=== PATIENT | female | born 1950 | race Caucasian/White ===

== ENCOUNTER 2016-12-19 14:25 | Emergency (ER) | payer MEDICARE, OTHER ==
[2016-12-19 15:00] VITALS: BP 161/95
--- NOTE | 2016-12-19 15:25 | EDM.PDOC ---
ED HPI GENERAL MEDICAL PROBLEM - General Chief Complaint: Genitourinary Problem Stated Complaint: UTI SYMPTOMS Time Seen by Provider: 12/19/16 15:18 Source of Information: Reports: Patient History Limitations: Reports: No Limitations - History of Present Illness INITIAL COMMENTS - FREE TEXT/NARRATIVE: Pt with urinary symptoms starting yesterday. Started Amoxicillin on 12/11 for sore throat. Hx of UTI many years ago. Had a cystoscopy about 10 years ago that helped resolve the issue. Denies fever. Reports increased frequency of urination. Onset: Sudden Onset Date: 12/18/16 Duration: Intermittent Quality: Reports: Burning, Pressure Severity: Mild Improves with: Reports: Other (OTC med Azo) Associated Symptoms: Reports: No Other Symptoms back Pain Score (Numeric/FACES): 5 - Related Data Allergies Allergy/AdvReac Type Severity Reaction Status Date / Time No Known Allergies Allergy Verified 12/19/16 14:47 Home Meds: Home Meds Amoxicillin 875 mg PO BID 12/19/16 [History] Calcium Carbonate/Vitamin D3 [Calcium 600 + Vit D 200] 1 tab PO BID 12/19/16 [ History] Hydrochlorothiazide 25 mg PO DAILY 12/19/16 [History] OLANZapine [Olanzapine] 5 mg PO DAILY 12/19/16 [History] Omeprazole 20 mg PO DAILY 12/19/16 [History] PARoxetine [Paxil] 20 mg PO BID 12/19/16 [History] Potassium Chloride [Klor-Con 10] 10 meq PO BID 12/19/16 [History] Raloxifene [Evista] 60 mg PO DAILY 12/19/16 [History] Simvastatin [Zocor] 40 mg PO BEDTIME 12/19/16 [History] amLODIPine/Benazepril [Lotrel 5-10 MG] 1 tab PO DAILY 12/19/16 [History] Past Medical History Cardiovascular History: Reports: High Cholesterol, Hypertension Gastrointestinal History: Reports: GERD Musculoskeletal History: Reports: Arthritis, Osteoporosis, Other (See Below) Other Musculoskeletal History: compression fractures to lower spine Psychiatric History: Reports: Anxiety, Bipolar, Depression Immunologic History: Reports: Other (See Below) Other Immunologic History: hepatitis C - Infectious Disease History Infectious Disease History: Reports: Hepatitis C, MRSA - Past Surgical History Cardiovascular Surgical History: Reports: None GI Surgical History: Reports: Cholecystectomy Female Surgical History: Reports: Cystoscopy, Tubal Ligation Musculoskeletal Surgical History: Reports: Knee Replacement Social & Family History - Tobacco Use Smoking Status *Q: Never Smoker Second Hand Smoke Exposure: No - Recreational Drug Use Recreational Drug Use: No ED ROS GENERAL - Review of Systems Review Of Systems: See Below Constitutional: Reports: No Symptoms : Reports: Dysuria, Frequency, Pain Musculoskeletal: Reports: Back Pain (chronic, pending surgery on Wednesday for compression FX) ED EXAM, RENAL/ - Physical Exam Exam: See Below Exam Limited By: No Limitations General Appearance: Alert, WD/WN, No Apparent Distress Respiratory/Chest: No Respiratory Distress, Lungs Clear, Normal Breath Sounds, No Accessory Muscle Use, Chest Non-Tender Cardiovascular: Normal Peripheral Pulses, Regular Rate, Rhythm, No Edema, No Gallop, No JVD, No Murmur, No Rub GI/Abdominal: Normal Bowel Sounds, Soft, Non-Tender, No Organomegaly, No Distention, No Abnormal Bruit, No Mass Course - Vital Signs Last Recorded V/S: Last Vital Signs Temp 98 F 12/19/16 14:59 Pulse 89 12/19/16 14:59 Resp 16 12/19/16 14:59 BP 161/95 H 12/19/16 14:59 Pulse Ox 96 12/19/16 14:59 - Orders/Labs/Meds Labs: Laboratory Tests 12/19/16 Range/Units 14:53 Urine Color [place] Urine Appearance Cloudy Urine pH 5.0 (4.5-8.0) Ur Specific [place] 1.015 (1.008-1.030) Urine Protein 100 H (NEGATIVE) mg/dL Urine Glucose (UA) Normal (NEGATIVE) mg/dL Urine Ketones Negative (NEGATIVE) mg/dL Urine Occult Blood Large (NEGATIVE) Urine Nitrite Positive H (NEGATIVE) Urine Bilirubin Moderate (NEGATIVE) Urine Urobilinogen 4 (NORMAL) mg/dL Ur Leukocyte Esterase Large (NEGATIVE) Urine RBC 10-20 H (0-5) Urine WBC Packed H (0-5) Ur Epithelial Cells Few Amorphous Sediment Few Urine Bacteria Moderate Urine Mucus Few Departure - Departure Time of Disposition: 15:22 Disposition: Home, Self-Care 01 Condition: good Clinical Impression: UTI, Urinary tract infectious disease - Discharge Information Instructions: Urinary Tract Infection, Adult, [id number] Forms: ED Department Discharge Additional Instructions: UA positive for UTI. Will treat with Bactrim DS 1 tab twice daily x 7 days. Will need to check UA in the am prior to surgery. Increase fluids, hydration. Followup if symptoms worsen. - Problem List & Annotations (1) UTI, Urinary tract infectious disease SNOMED Code(s): 00390622 Code(s): N39.0 - URINARY TRACT INFECTION, SITE NOT SPECIFIED Status: Acute Priority: Low Current Visit: Yes
== END 2016-12-19 15:40 | disposition home or self-care (01) ==
LOC: JP.ED 14:25
DX: N39.0 Urinary tract infection, site not specified (principal); I10 Essential (primary) hypertension; E78.00 Pure hypercholesterolemia, unspecified; K21.9 Gastro-esophageal reflux disease without esophagitis; M19.90 Unspecified osteoarthritis, unspecified site; F31.9 Bipolar disorder, unspecified; Z79.899 Other long term (current) drug therapy; Z90.49 Acquired absence of other specified parts of digestive tract; Z98.51 Tubal ligation status; Z96.659 Presence of unspecified artificial knee joint
CPT/HCPCS: 81001; 99283; 99284

== ENCOUNTER 2017-01-10 10:45 | Inpatient (IN) | payer MEDICARE, OTHER ==
--- NOTE | 2017-01-10 11:28 | EDM.PDOC ---
ED HPI GENERAL MEDICAL PROBLEM - General Chief Complaint: Fever Stated Complaint: FEVER/FEELS ILL Time Seen by Provider: 01/10/17 11:23 Source of Information: Reports: Patient, Family History Limitations: Reports: No Limitations - History of Present Illness INITIAL COMMENTS - FREE TEXT/NARRATIVE: Pt with back surgery on L3-4, L4-[address] Kelley [place]. Seen for URI and given Augmentin. Seen for UTI last week and given Cipro on 01/06. Still having urinary symptoms and high fevers. Back pain is doing well. Does note later that she was diagnosed with a new murmur last week and has a known history of low potassium. Onset: Gradual Duration: Intermittent Severity: Moderate Improves with: Reports: None Worsens with: Reports: None Associated Symptoms: Reports: Fever/Chills, Loss of Appetite, Nausea/Vomiting ( vomited x 1 this am) - Related Data Allergies Allergy/AdvReac Type Severity Reaction Status Date / Time No Known Allergies Allergy Verified 12/19/16 14:47 Home Meds: Home Meds Calcium Carbonate/Vitamin D3 [Calcium 600 + Vit D 200] 1 tab PO BID 12/19/16 [ History] Hydrochlorothiazide 25 mg PO DAILY 12/19/16 [History] OLANZapine [Olanzapine] 5 mg PO DAILY 12/19/16 [History] Omeprazole 20 mg PO DAILY 12/19/16 [History] PARoxetine [Paxil] 20 mg PO BID 12/19/16 [History] Potassium Chloride [Klor-Con 10] 10 meq PO BID 12/19/16 [History] Raloxifene [Evista] 60 mg PO DAILY 12/19/16 [History] Simvastatin [Zocor] 40 mg PO BEDTIME 12/19/16 [History] amLODIPine/Benazepril [Lotrel 5-10 MG] 1 tab PO DAILY 12/19/16 [History] Ciprofloxacin HCl [Cipro] 01/10/17 [History] Past Medical History Cardiovascular History: Reports: Heart Murmur, High Cholesterol, Hypertension Gastrointestinal History: Reports: GERD Musculoskeletal History: Reports: Arthritis, Osteoporosis, Other (See Below) Other Musculoskeletal History: compression fractures to lower spine Psychiatric History: Reports: Anxiety, Bipolar, Depression Immunologic History: Reports: Other (See Below) Other Immunologic History: hepatitis C - Infectious Disease History Infectious Disease History: Reports: Hepatitis C, MRSA - Past Surgical History Cardiovascular Surgical History: Reports: None GI Surgical History: Reports: Cholecystectomy Female Surgical History: Reports: Cystoscopy, Tubal Ligation Musculoskeletal Surgical History: Reports: Knee Replacement Social & Family History - Tobacco Use Smoking Status *Q: Never Smoker Second Hand Smoke Exposure: No - Recreational Drug Use Recreational Drug Use: No ED ROS GENERAL - Review of Systems Review Of Systems: See Below Constitutional: Reports: Fever, Chills, Fatigue, Decreased Appetite HEENT: Reports: No Symptoms Respiratory: Reports: No Symptoms Cardiovascular: Reports: No Symptoms : Reports: Dysuria, Frequency, Incontinence Musculoskeletal: Reports: No Symptoms Skin: Reports: No Symptoms ED EXAM, SEPSIS - Physical Exam Exam: See Below Exam Limited By: No Limitations General Appearance: Alert, WD/WN, No Apparent Distress Ears: Normal External Exam, Normal Canal, Hearing Grossly Normal, Normal TMs Nose: Normal Inspection, Normal Mucosa, No Blood Throat/Mouth: Normal Inspection, Normal Lips, Normal Teeth, Normal Gums, Normal Oropharynx, Normal Voice, No Airway Compromise Head: Atraumatic, Normocephalic Neck: Normal Inspection, Supple, Non-Tender, Full Range of Motion Respiratory/Chest: No Respiratory Distress, Lungs Clear, Normal Breath Sounds, No Accessory Muscle Use, Chest Non-Tender Cardiovascular: Systolic Murmur (Gr3) GI/Abdominal: Normal Bowel Sounds, Soft, Non-Tender, No Organomegaly Extremities: Normal Inspection, Normal Range of Motion, Non-Tender, No Pedal Edema, Normal Capillary Refill Neurological: Alert, Oriented, CN II-XII Intact, Normal Cognition, Normal Gait, Normal Reflexes, No Motor/Sensory Deficits Skin: Warm, Dry, Intact, Normal Color, No Rash, Other (incision intact with no redness or warmth) Course - Vital Signs Last Recorded V/S: Last Vital Signs Temp 98.8 F 01/10/17 14:26 Pulse 93 01/10/17 14:26 Resp 16 01/10/17 14:26 BP 110/69 01/10/17 14:26 Pulse Ox 93 L 01/10/17 14:26 - Orders/Labs/Meds Orders: Active Orders 24 hr Category Date Time Status Chest 2V [CR] Stat Exams 01/10/17 12:15 Taken Lumbar Spine w Cont [CT] Stat Exams 01/10/17 13:17 Taken CULTURE BLOOD [BC] Urgent Lab 01/10/17 12:20 Received CULTURE BLOOD [BC] Urgent Lab 01/10/17 12:25 Received CULTURE URINE [RM] Stat Lab 01/10/17 11:40 Received NS + KCl 20mEq/L [Normal Saline with 20 mEq KCl] 1,000 Med 01/10/17 14:30 Active ml IV ASDIRECTED Blood Culture x2 Reflex Set [OM.PC] Urgent Oth 01/10/17 12:15 Ordered Medication Orders Potassium Chloride/Sodium Chloride (Normal Saline With 20 Meq Kcl) 1,000 mls @ 100 mls/hr IV ASDIRECTED SOTERO Labs: Laboratory Tests 01/10/17 01/10/17 01/10/17 Range/Units 11:37 11:37 11:37 WBC 10.4 (4.5-11.0) K/uL RBC 3.70 (3.30-5.50) M/uL Hgb 10.8 L (12.0-15.0) g/dL Hct 33.1 L (36.0-48.0) % MCV 90 (80-98) fL MCH 29 (27-31) pg MCHC 33 (32-36) % Plt Count 170 (150-400) K/uL Add Manual Diff Yes Neutrophils % (Manual) 83 H (36-66) % Band Neutrophils % 10 (5-11) % Lymphocytes % (Manual) 5 L (24-44) % Monocytes % (Manual) 2 (2-6) % Sodium 136 L (140-148) mmol/L Potassium 2.4 L* (3.6-5.2) mmol/L Chloride 98 L (100-108) mmol/L Carbon Dioxide 25 (21-32) mmol/L Anion Gap 15.4 H (5.0-14.0) mmol/L BUN 15 (7-18) mg/dL Creatinine 1.3 H (0.6-1.0) mg/dL Est Cr Clr Drug Dosing 30.16 mL/min Estimated GFR (MDRD) 41 L (>60) Glucose 140 H (74-106) mg/dL Lactic Acid 3.3 H (0.4-2.0) mmol/L Calcium 8.9 (8.5-10.1) mg/dL Urine Color Urine Appearance Urine pH (4.5-8.0) Ur Specific [place] (1.008-1.030) Urine Protein (NEGATIVE) mg/dL Urine Glucose (UA) (NEGATIVE) mg/dL Urine Ketones (NEGATIVE) mg/dL Urine Occult Blood (NEGATIVE) Urine Nitrite (NEGATIVE) Urine Bilirubin (NEGATIVE) Urine Urobilinogen (NORMAL) mg/dL Ur Leukocyte Esterase (NEGATIVE) Urine RBC (0-5) Urine WBC (0-5) Ur Epithelial Cells Amorphous Sediment Urine Bacteria Urine Mucus 01/10/17 Range/Units 11:38 WBC (4.5-11.0) K/uL RBC (3.30-5.50) M/uL Hgb (12.0-15.0) g/dL Hct (36.0-48.0) % MCV (80-98) fL MCH (27-31) pg MCHC (32-36) % Plt Count (150-400) K/uL Add Manual Diff Neutrophils % (Manual) (36-66) % Band Neutrophils % (5-11) % Lymphocytes % (Manual) (24-44) % Monocytes % (Manual) (2-6) % Sodium (140-148) mmol/L Potassium (3.6-5.2) mmol/L Chloride (100-108) mmol/L Carbon Dioxide (21-32) mmol/L Anion Gap (5.0-14.0) mmol/L BUN (7-18) mg/dL Creatinine (0.6-1.0) mg/dL Est Cr Clr Drug Dosing mL/min Estimated GFR (MDRD) (>60) Glucose (74-106) mg/dL Lactic Acid (0.4-2.0) mmol/L Calcium (8.5-10.1) mg/dL Urine Color Yellow Urine Appearance Cloudy Urine pH 8.0 (4.5-8.0) Ur Specific [place] 1.015 (1.008-1.030) Urine Protein Negative (NEGATIVE) mg/dL Urine Glucose (UA) Normal (NEGATIVE) mg/dL Urine Ketones Negative (NEGATIVE) mg/dL Urine Occult Blood Negative (NEGATIVE) Urine Nitrite Negative (NEGATIVE) Urine Bilirubin Negative (NEGATIVE) Urine Urobilinogen Normal (NORMAL) mg/dL Ur Leukocyte Esterase Small (NEGATIVE) Urine RBC Not seen (0-5) Urine WBC 0-5 (0-5) Ur Epithelial Cells Few Amorphous Sediment Many Urine Bacteria Not seen Urine Mucus Not seen Meds: Medications Generic Name Dose Route Start Last Admin Trade Name Freq PRN Reason Stop Dose Admin Potassium Chloride/Sodium Chloride 1,000 mls @ 100 mls/hr 01/10/17 14:30 Normal Saline With 20 Meq Kcl IV ASDIRECTED SOTERO Discontinued Medications Generic Name Dose Route Start Last Admin Trade Name Freq PRN Reason Stop Dose Admin Sodium Chloride 70 mls @ 3 mls/sec 01/10/17 14:00 01/10/17 14:09 Normal Saline IV 01/10/17 15:00 3 mls/sec ASDIRECTED SOTERO Administration Iopamidol 90 ml 01/10/17 13:50 01/10/17 14:09 Isovue-300 (61%) IV 01/10/17 15:00 90 ml . DIRECTED PRN Administration RADIOLOGY EXAM Potassium Chloride 40 meq 01/10/17 12:53 01/10/17 13:02 Klor-Con M20 PO 01/10/17 12:54 40 meq ONETIME ONE Administration Sodium Chloride 10 ml 01/10/17 13:50 01/10/17 14:03 Saline Flush FLUSH 01/10/17 15:00 10 ml ONETIME PRN Administration per radiology protocol Departure - Departure Time of Disposition: 15:10 Disposition: Admitted As Inpatient 66 Condition: good Clinical Impression: Fever and neutropenia, Hypokalemia, Sepsis - Discharge Information Referrals: Yuni Mcnamara MD [Primary Care Provider] - Forms: ED Department Discharge Additional Instructions: CBC shows mild neutrophilia. Lactic acid elevated. Potassium low at 2.4. Blood culture pending. Chest xray completed and normal. CT of lumbar spine recommended to rule out abcess. Hospitalist consulted. Oral potassium 40 meq given. IV NS with 20 KCL initiated due to low potassium and GFR. Pt to be admitted to rule out causes of fever and treat hypokalemia. Dr. Loja admitting. See his notes for admit. - Problem List & Annotations (1) Fever and neutropenia SNOMED Code(s): 306558992 Code(s): D70.9 - NEUTROPENIA, UNSPECIFIED; R50.81 - FEVER PRESENTING WITH CONDITIONS CLASSIFIED ELSEWHERE Status: Acute Priority: High Current Visit : Yes (2) Hypokalemia SNOMED Code(s): 11656491 Code(s): E87.6 - HYPOKALEMIA Status: Acute Priority: High Current Visit : Yes - My Orders Last 24 Hours: My Active Orders 01/10/17 11:40 CULTURE URINE [RM] Stat 01/10/17 12:15 Chest 2V [CR] Stat Blood Culture x2 Reflex Set [OM.PC] Urgent 01/10/17 12:20 CULTURE BLOOD [BC] Urgent 01/10/17 12:25 CULTURE BLOOD [BC] Urgent 01/10/17 13:17 Lumbar Spine w Cont [CT] Stat 01/10/17 14:30 NS + KCl 20mEq/L [Normal Saline with 20 mEq KCl] 1,000 ml IV ASDIRECTED - Assessment/Plan Last 24 Hours: My Active Orders 01/10/17 11:40 CULTURE URINE [RM] Stat 01/10/17 12:15 Chest 2V [CR] Stat Blood Culture x2 Reflex Set [OM.PC] Urgent 01/10/17 12:20 CULTURE BLOOD [BC] Urgent 01/10/17 12:25 CULTURE BLOOD [BC] Urgent 01/10/17 13:17 Lumbar Spine w Cont [CT] Stat 01/10/17 14:30 NS + KCl 20mEq/L [Normal Saline with 20 mEq KCl] 1,000 ml IV ASDIRECTED
[2017-01-10] MEDS ORDERED: Potassium Chloride 20 MEQ Tab.ER PO ONE (12:53)
[2017-01-10] MEDS ORDERED: Iopamidol 612 MG/ML 100 ML Bottle IV PRN (13:50)
[2017-01-10] MEDS ORDERED: Sodium Chloride 0.9% 10 ML Syringe FLUSH PRN (13:50)
[2017-01-10] MEDS ORDERED: NS + KCl 20mEq/L 1,000 ML IV SCH (14:30)
--- NOTE | 2017-01-10 15:27 | PCM.HP ---
H&P History of Present Illness - General Date of Service: 01/10/17 Admit Problem/Dx: Admission Diagnosis/Problem Admission Diagnosis/Problem Fever Source of Information: Patient, Family, Provider History Limitations: Reports: No Limitations - History of Present Illness Initial Comments - Free Text/Narative: Cindy presented to the emergency room with fever, weakness, headache and myalgias. Symptoms started approximately 1 week ago and have progressed throughout the week. She has had multiple episodes of shaking chills. She has not measured any fevers at home. Her energy and her appetite has been very decreased from baseline. She reports that she's been in bed essentially all day everyday for the past week. She reports a mild generalized headache that comes and goes. No blurry vision or neck pain. No complaints of shortness of breath but she does feel fatigued. She hurts all over the place including mostly muscles but some joints. She hasn't noticed any joint swelling. No complaints of chest or abdominal pain. One episode of vomiting today but no diarrhea. She did have back surgery 2 weeks ago but has essentially no back pain at this time. She is not aware of any sick contacts. She is not aware of any tick bites. No recent difficulties with weight loss, fatigue or night sweats. Workup in the emergency room revealed a high fever, greater than 102. Laboratory studies reveal normal white count, elevated lactic acid, mild transaminitis and significant CRP elevation. - Related Data Allergies/Adverse Reactions: Allergies Allergy/AdvReac Type Severity Reaction Status Date / Time No Known Allergies Allergy Verified 12/19/16 14:47 Home Medications: Home Meds Calcium Carbonate/Vitamin D3 [Calcium 600 + Vit D 200] 1 tab PO BID 12/19/16 [ History] Hydrochlorothiazide 25 mg PO DAILY 12/19/16 [History] OLANZapine [Olanzapine] 5 mg PO DAILY 12/19/16 [History] Omeprazole 20 mg PO DAILY 12/19/16 [History] PARoxetine [Paxil] 20 mg PO BID 12/19/16 [History] Potassium Chloride [Klor-Con 10] 10 meq PO BID 12/19/16 [History] Raloxifene [Evista] 60 mg PO DAILY 12/19/16 [History] Simvastatin [Zocor] 40 mg PO BEDTIME 12/19/16 [History] amLODIPine/Benazepril [Lotrel 5-10 MG] 1 tab PO DAILY 12/19/16 [History] Ciprofloxacin HCl [Cipro] 500 mg PO BID 01/10/17 [History] Past Medical History Cardiovascular History: Reports: Heart Murmur, High Cholesterol, Hypertension Gastrointestinal History: Reports: GERD Musculoskeletal History: Reports: Arthritis, Osteoporosis, Other (See Below) Other Musculoskeletal History: compression fractures to lower spine Psychiatric History: Reports: Anxiety, Bipolar, Depression Immunologic History: Reports: Other (See Below) Other Immunologic History: hepatitis C - Infectious Disease History Infectious Disease History: Reports: Hepatitis C, MRSA - Past Surgical History Cardiovascular Surgical History: Reports: None GI Surgical History: Reports: Cholecystectomy Female Surgical History: Reports: Cystoscopy, Tubal Ligation Musculoskeletal Surgical History: Reports: Knee Replacement Social & Family History - Family History Cardiac: Denies: CAD - Tobacco Use Smoking Status *Q: Never Smoker Second Hand Smoke Exposure: No - Alcohol Use Alcohol Use History: No - Recreational Drug Use Recreational Drug Use: No H&P Review of Systems - Review of Systems: Review Of Systems: See Below Free Text/Narrative: A complete 12 point review of systems was obtained. Pertinent positives and negatives are noted in the history of present illness. All other systems were reviewed and were negative except as noted. Exam - Exam Exam: See Below - Vital Signs Vital Signs: Last Vital Signs Temp 37.1 C 01/10/17 14:26 Pulse 93 01/10/17 14:26 Resp 16 01/10/17 14:26 BP 110/69 01/10/17 14:26 Pulse Ox 93 L 01/10/17 14:26 Weight: 60.5 kg - Exam Quality Assessment: No: Supplemental Oxygen General: Alert, Oriented, Cooperative. No: Mild Distress HEENT: Conjunctiva Clear, Mucosa Moist & [place], Normal Nasal Septum. No: Scleral Icterus Neck: Supple, Trachea Midline. No: Lymphadenopathy, Thyromegaly Lungs: Clear to Auscultation, Normal Respiratory Effort Cardiovascular: Regular Rate, Regular Rhythm, Normal S1, Normal S2, Systolic Murmur (soft VALERIE LLSB). No: Rubs Abdomen: Normal Bowel Sounds, Soft. No: Distention, Tenderness Back Exam: Normal Inspection, Full Range of Motion Extremities: Normal Inspection, Normal Pulses, Other (No lymphadenopathy either axilla). No: Cyanosis Peripheral Pulses: 2+: Dorsalis Pedis (L), Dorsalis Pedis (R) Skin: Warm, Dry Neuro Extensive - Mental Status: Alert, Oriented x3, Nl Response to Commands Neuro Extensive - Motor, Sensory, Reflexes: CN II-XII Intact. No: Dysarthria, Abnormal Motor, Tremor Psychiatric: Alert, Normal Affect - Patient Data Lab Results last 24 hrs: Laboratory Results - last 24 hr 01/10/17 01/10/17 01/10/17 Range/Units 11:37 11:37 11:37 WBC 10.4 (4.5-11.0) K/uL RBC 3.70 (3.30-5.50) M/uL Hgb 10.8 L (12.0-15.0) g/dL Hct 33.1 L (36.0-48.0) % MCV 90 (80-98) fL MCH 29 (27-31) pg MCHC 33 (32-36) % Plt Count 170 (150-400) K/uL Add Manual Diff Yes Neutrophils % (Manual) 83 H (36-66) % Band Neutrophils % 10 (5-11) % Lymphocytes % (Manual) 5 L (24-44) % Monocytes % (Manual) 2 (2-6) % Sodium 136 L (140-148) mmol/L Potassium 2.4 L* (3.6-5.2) mmol/L Chloride 98 L (100-108) mmol/L Carbon Dioxide 25 (21-32) mmol/L Anion Gap 15.4 H (5.0-14.0) mmol/L BUN 15 (7-18) mg/dL Creatinine 1.3 H (0.6-1.0) mg/dL Est Cr Clr Drug Dosing 30.16 mL/min Estimated GFR (MDRD) 41 L (>60) Glucose 140 H (74-106) mg/dL Lactic Acid 3.3 H (0.4-2.0) mmol/L Calcium 8.9 (8.5-10.1) mg/dL Urine Color Urine Appearance Urine pH (4.5-8.0) Ur Specific [place] (1.008-1.030) Urine Protein (NEGATIVE) mg/dL Urine Glucose (UA) (NEGATIVE) mg/dL Urine Ketones (NEGATIVE) mg/dL Urine Occult Blood (NEGATIVE) Urine Nitrite (NEGATIVE) Urine Bilirubin (NEGATIVE) Urine Urobilinogen (NORMAL) mg/dL Ur Leukocyte Esterase (NEGATIVE) Urine RBC (0-5) Urine WBC (0-5) Ur Epithelial Cells Amorphous Sediment Urine Bacteria Urine Mucus 01/10/17 Range/Units 11:38 WBC (4.5-11.0) K/uL RBC (3.30-5.50) M/uL Hgb (12.0-15.0) g/dL Hct (36.0-48.0) % MCV (80-98) fL MCH (27-31) pg MCHC (32-36) % Plt Count (150-400) K/uL Add Manual Diff Neutrophils % (Manual) (36-66) % Band Neutrophils % (5-11) % Lymphocytes % (Manual) (24-44) % Monocytes % (Manual) (2-6) % Sodium (140-148) mmol/L Potassium (3.6-5.2) mmol/L Chloride (100-108) mmol/L Carbon Dioxide (21-32) mmol/L Anion Gap (5.0-14.0) mmol/L BUN (7-18) mg/dL Creatinine (0.6-1.0) mg/dL Est Cr Clr Drug Dosing mL/min Estimated GFR (MDRD) (>60) Glucose (74-106) mg/dL Lactic Acid (0.4-2.0) mmol/L Calcium (8.5-10.1) mg/dL Urine Color Yellow Urine Appearance Cloudy Urine pH 8.0 (4.5-8.0) Ur Specific [place] 1.015 (1.008-1.030) Urine Protein Negative (NEGATIVE) mg/dL Urine Glucose (UA) Normal (NEGATIVE) mg/dL Urine Ketones Negative (NEGATIVE) mg/dL Urine Occult Blood Negative (NEGATIVE) Urine Nitrite Negative (NEGATIVE) Urine Bilirubin Negative (NEGATIVE) Urine Urobilinogen Normal (NORMAL) mg/dL Ur Leukocyte Esterase Small (NEGATIVE) Urine RBC Not seen (0-5) Urine WBC 0-5 (0-5) Ur Epithelial Cells Few Amorphous Sediment Many Urine Bacteria Not seen Urine Mucus Not seen Result Diagrams: 01/10/17 11:37 01/10/17 11:37 Imaging Impressions last 24 hrs: CXR - images personally reviewed - clear, no infiltrate, mass, effusion or cardiomegally CT lumbar spine - images personally reviewed - no evidence for abscess. L1 compression fracture *Q Meaningful Use (ADM) - VTE *Q VTE Criteria *Q: - VTE Risk Assess *Q Each Risk Factor Represents 1 Point: None Total Score 1 Point Risk Factors: 0 Each Risk Factor Represents 2 Points: Age 60 - 74 Years, Surgery: Major, Arthroscopic and/or Laparoscopic, Greater than 60 Min Total Score 2 Point Risk Factors: 4 Each Risk Factor Represents 3 Points: None Total Score 3 Point Risk Factors: 0 Each Risk Factor Represents 5 Points: None Total Score 5 Point Risk Factors: 0 Venous Thromboembolism Risk Factor Score *Q: 4 - Stroke *Q Stroke Criteria *Q: - AMI *Q AMI Criteria *Q: - Problem List (1) Fever SNOMED Code(s): 296897772 ICD Code: R50.9 - FEVER, UNSPECIFIED Status: Acute Current Visit: Yes Qualifiers: Fever type: unspecified Qualified Code(s): R50.9 - Fever, unspecified (2) Sepsis SNOMED Code(s): 56095695 ICD Code: A41.9 - SEPSIS, UNSPECIFIED ORGANISM Status: Acute Current Visit: Yes Qualifiers: Sepsis type: sepsis due to unspecified organism Qualified Code(s): A41.9 - Sepsis, unspecified organism (3) Hypokalemia SNOMED Code(s): 52411760 ICD Code: E87.6 - HYPOKALEMIA Status: Acute Priority: High Current Visit: Yes Problem List Initiated/Reviewed/Updated: Yes Orders Last 24hrs: Active Orders 24 hr Category Date Time Status Patient Status Manage Transfer [TRANSFER] Routine ADT 01/10/17 15:12 Ordered Chest 2V [CR] Stat Exams 01/10/17 12:15 Taken Lumbar Spine w Cont [CT] Stat Exams 01/10/17 13:17 Taken CRP [C-REACTIVE PROTEIN] [CHEM] Urgent Lab 01/10/17 15:09 Ordered CULTURE BLOOD [BC] Urgent Lab 01/10/17 12:20 Received CULTURE BLOOD [BC] Urgent Lab 01/10/17 12:25 Received CULTURE URINE [RM] Stat Lab 01/10/17 11:40 Received ESR [SEDIMENTATION RATE MANUAL] [HEME] Urgent Lab 01/10/17 15:09 Ordered HEPATIC FUNCTION PANEL,HFP [CHEM] Urgent Lab 01/10/17 15:08 Ordered NS + KCl 20mEq/L [Normal Saline with 20 mEq KCl] 1,000 Med 01/10/17 14:30 Active ml IV ASDIRECTED cefTRIAXone [Rocephin] 1 gm Med 01/10/17 16:00 Active Sodium Chloride 0.9% [Normal Saline] 50 ml IV Q24H Blood Culture x2 Reflex Set [OM.PC] Urgent Oth 01/10/17 12:15 Ordered Resuscitation Status Routine Resus Stat 01/10/17 15:14 Ordered Medication Orders Potassium Chloride/Sodium Chloride (Normal Saline With 20 Meq Kcl) 1,000 mls @ 100 mls/hr IV ASDIRECTED SOTERO Ceftriaxone Sodium 1 gm/ (Sodium Chloride) 50 mls @ 100 mls/hr IV Q24H SOTERO Assessment/Plan Comment:: Assessment and plan - Fever with evidence for sepsis - Patient is tachycardic and has an elevated lactic acid level. Exact source for the fever is not entirely clear at this time. Chest x-ray looks good, urine is clear and there is no evidence for abscess or abnormality at lumbar surgical site. Examination is benign. She does have some risk factors for tickborne disease. Given the significant CRP and sedimentation rate elevation inflammatory or potentially an infectious diseases could be considered. Cultures have been obtained. She does have a heart murmur that was newly discovered though she does not have risk factors for endocarditis that I'm aware of. -Empiric ceftriaxone to cover tickborne illness -Since her allergies for tickborne illness -Peripheral smear and LDH to look for possible neoplastic disease such as leukemia/lymphoma -Anti-pyresis -Follow-up culture results -Echocardiogram in the morning to look for endocarditis -Peripheral smear Lower back pain status post recent laminectomy - CT did not show evidence for abscess but did show significant compression fracture at L1. Patient does not have any back pain at this time. I have a low suspicion for acute pathology in her lumbar spine. -Pain control if indicated Hyperkalemia - very low K+, probably 2/2 to diuretic use. She has received some in the emergency room. -IV fluids with potassium -Increase daily supplement to 20 mEq twice a day -Repeat labs in the morning Essential hypertension - blood pressure acceptable in the emergency room and usual medications will be continued. Maintenance issues - - DVT prophylaxis - mechanical - GI prophylaxis - PPI - Nutrition - regular diet - Negron catheter - not indicated CODE STATUS - full code Admission justification - This patient will be admitted for inpatient services and is medically appropriate meeting medical necessity for inpatient admission as outlined in my documentation. I reasonably expect the patient will require inpatient services that span a period time over 2 midnights. I reasonably expect this patient to be discharged or transferred within 96 hours after admission to the Critical [facility]. Disposition - anticipate discharge to home after the hospital stay Primary care physician - Dr Adners Loja M.D.
[2017-01-10] MEDS: cefTRIAXone 1 GM in Sodium Chloride 0.9% 50 ML IV SCH (15:32)
[2017-01-10] MEDS ORDERED: Polyethylene Glycol 3350 Powder 17 GM Packet PO PRN (17:10)
[2017-01-10] MEDS ORDERED: Ondansetron 4 MG Tab.DIS PO PRN (17:10)
[2017-01-10] MEDS ORDERED: Ibuprofen 400 MG Tab PO PRN (17:10)
[2017-01-10] MEDS ORDERED: Sodium Chloride 0.9% 1,000 ML IV SCH (17:10)
[2017-01-10] MEDS ORDERED: Sodium Chloride 0.9% 1,000 ML IV ONE ×2 (18:00)
[2017-01-10] MEDS: PARoxetine 20 MG Tab PO SCH (22:02)
[2017-01-10] MEDS: Simvastatin 20 MG Tab PO SCH (22:03)
[2017-01-10] MEDS: Potassium Chloride 20 MEQ Tab.ER PO SCH (22:03)
[2017-01-10] MEDS: Dextrose 5%-0.9% NaCl with KCl 1,000 ML IV SCH (23:32)
[2017-01-11] MEDS: Dextrose 5%-0.9% NaCl with KCl 1,000 ML IV SCH (07:52)
--- NOTE | 2017-01-11 09:26 | CR ---
Chest 2V INDICATION: fever, unknown origin FINDINGS: Thoracolumbar curve. Heart size within normal limits. Lungs are clear. Chest otherwise unr emarkable.
[2017-01-11] MEDS: Pantoprazole 40 MG Tab.CR PO SCH (09:41)
[2017-01-11] MEDS: Hydrochlorothiazide 25 MG Tab PO SCH (09:42)
[2017-01-11] MEDS: Raloxifene 60 MG Tab PO SCH (09:42)
[2017-01-11] MEDS: PARoxetine 20 MG Tab PO SCH ×2 (09:43→20:13)
[2017-01-11] MEDS: Potassium Chloride 20 MEQ Tab.ER PO SCH ×2 (09:44→20:13)
[2017-01-11] MEDS: OLANZapine 5 MG Tab PO SCH (09:44)
[2017-01-11] MEDS: amLODIPine 5 MG Tab PO SCH (09:44)
--- NOTE | 2017-01-11 12:18 | PCM.PN ---
- General Info Date of Service: 01/11/17 - Review of Systems General: Reports: Fever, Weakness. Denies: Chills Pulmonary: Reports: no symptoms Cardiovascular: Reports: No Symptoms Gastrointestinal: Reports: No symptoms Genitourinary: Reports: no symptoms Musculoskeletal: Denies: back pain, leg pain Neurological: Reports: No Symptoms Systems Review Comment:: Ms. Muñiz is a 66-year-old woman who was admitted through the emergency department with fever and weakness. Symptoms came on over the past few days, she has had a recent lumbar laminectomy done approximately 3 weeks ago, but denies sick again to increase in back pain. She's had no associated neurologic symptoms and no other specific source of infection has been identified on evaluation. CT scan was done of her lumbar spine and showed no evidence of underlying infection. Chest x-ray is clear and urinalysis shows no evidence of infection. She denies significant abdominal pain or skin lesions. White blood cell count is now elevated, it had been normal at the time of admission. She has been afebrile and hemodynamically stable since admission. - Patient Data Vitals - most recent: Last Vital Signs Temp 98.8 F 01/11/17 11:00 Pulse 84 01/11/17 11:00 Resp 18 01/11/17 11:00 BP 129/74 01/11/17 11:00 Pulse Ox 96 01/11/17 11:00 Weight - most recent: 127 lb 14.384 oz I&O - last 24 hours: Intake & Output 01/10/17 01/11/17 01/11/17 22:59 06:59 14:59 Intake Total 1320 2450 360 Output Total 5113 864 6298 Balance -380 1800 -940 Lab Results last 24 hrs: Laboratory Results - last 24 hr 01/10/17 01/11/17 01/11/17 Range/Units 17:10 05:50 05:50 WBC 14.3 H (4.5-11.0) K/uL RBC 3.38 (3.30-5.50) M/uL Hgb 10.0 L (12.0-15.0) g/dL Hct 30.7 L (36.0-48.0) % MCV 91 (80-98) fL MCH 30 (27-31) pg MCHC 33 (32-36) % Plt Count 178 (150-400) K/uL Sodium 146 (140-148) mmol/L Potassium 3.9 (3.6-5.2) mmol/L Chloride 112 H (100-108) mmol/L Carbon Dioxide 27 (21-32) mmol/L Anion Gap 10.9 (5.0-14.0) mmol/L BUN 10 (7-18) mg/dL Creatinine 0.9 (0.6-1.0) mg/dL Est Cr Clr Drug Dosing 43.57 mL/min Estimated GFR (MDRD) > 60 (>60) Glucose 126 H (74-106) mg/dL Lactic Acid 3.8 H (0.4-2.0) mmol/L Calcium 8.4 L (8.5-10.1) mg/dL Lactate Dehydrogenase 166 (82-234) U/L 01/11/17 Range/Units 05:50 WBC (4.5-11.0) K/uL RBC (3.30-5.50) M/uL Hgb (12.0-15.0) g/dL Hct (36.0-48.0) % MCV (80-98) fL MCH (27-31) pg MCHC (32-36) % Plt Count (150-400) K/uL Sodium (140-148) mmol/L Potassium (3.6-5.2) mmol/L Chloride (100-108) mmol/L Carbon Dioxide (21-32) mmol/L Anion Gap (5.0-14.0) mmol/L BUN (7-18) mg/dL Creatinine (0.6-1.0) mg/dL Est Cr Clr Drug Dosing mL/min Estimated GFR (MDRD) (>60) Glucose (74-106) mg/dL Lactic Acid 1.5 (0.4-2.0) mmol/L Calcium (8.5-10.1) mg/dL Lactate Dehydrogenase (82-234) U/L Med Orders - Current: Current Medications Acetaminophen (Tylenol) 650 mg PO Q4H PRN PRN Reason: Pain (Mild 1-3)/fever Amlodipine Besylate (Norvasc) 5 mg PO DAILY [facility] Last Admin: 01/11/17 09:44 Dose: 5 mg Benazepril HCl (Lotensin) 10 mg PO DAILY [facility] Last Admin: 01/11/17 09:42 Dose: 10 mg Hydrochlorothiazide (Hydrochlorothiazide) 25 mg PO DAILY [facility] Last Admin: 01/11/17 09:42 Dose: 25 mg Ceftriaxone Sodium 1 gm/ (Sodium Chloride) 50 mls @ 100 mls/hr IV Q24H [facility] Last Admin: 01/10/17 15:32 Dose: 100 mls/hr Ibuprofen (Motrin) 400 mg PO Q6H PRN PRN Reason: Pain (mild 1-3) Olanzapine (Zyprexa) 5 mg PO DAILY [facility] Last Admin: 01/11/17 09:44 Dose: 5 mg Ondansetron HCl (Zofran Odt) 4 mg PO Q6H PRN PRN Reason: Nausea able to take PO Pantoprazole Sodium (Protonix) 40 mg PO ACBREAKFAST [facility] Last Admin: 01/11/17 09:41 Dose: 40 mg Paroxetine HCl (Paxil) 20 mg PO BID [facility] Last Admin: 01/11/17 09:43 Dose: 20 mg Polyethylene Glycol (Miralax) 17 gm PO DAILY PRN PRN Reason: Constipation Potassium Chloride (Klor-Con M20) 20 meq PO BID [facility] Last Admin: 01/11/17 09:44 Dose: 20 meq Raloxifene HCl (Evista) 60 mg PO DAILY [facility] Last Admin: 01/11/17 09:42 Dose: 60 mg Simvastatin (Zocor) 40 mg PO BEDTIME [facility] Last Admin: 01/10/17 22:03 Dose: 40 mg Discontinued Medications Sodium Chloride (Normal Saline) 70 mls @ 3 mls/sec IV ASDIRECTED [facility] Stop: 01/10/17 15:00 Last Admin: 01/10/17 14:09 Dose: 3 mls/sec Potassium Chloride/Sodium Chloride (Normal Saline With 20 Meq Kcl) 1,000 mls @ 100 mls/hr IV ASDIRECTED [facility] Last Admin: 01/10/17 15:31 Dose: 100 mls/hr Potassium Chloride/Dextrose/Sod Cl (D5 Ns With 20 Meq Kcl) 1,000 mls @ 125 mls/ hr IV ASDIRECTED [facility] Last Admin: 01/11/17 07:52 Dose: 125 mls/hr Sodium Chloride (Normal Saline) 1,000 mls @ 999 mls/hr IV ASDIRECTED [facility] Sodium Chloride (Normal Saline) 1,000 mls @ 999 mls/hr IV ONETIME ONE Stop: 01/10/17 19:00 Last Admin: 01/10/17 18:11 Dose: 999 mls/hr Sodium Chloride (Normal Saline) 1,000 mls @ 999 mls/hr IV ONETIME ONE Stop: 01/10/17 19:00 Last Admin: 01/10/17 19:14 Dose: 999 mls/hr Iopamidol (Isovue-300 (61%)) 90 ml IV . DIRECTED PRN PRN Reason: RADIOLOGY EXAM Stop: 01/10/17 15:00 Last Admin: 01/10/17 14:09 Dose: 90 ml Potassium Chloride (Klor-Con M20) 40 meq PO ONETIME ONE Stop: 01/10/17 12:54 Last Admin: 01/10/17 13:02 Dose: 40 meq Sodium Chloride (Saline Flush) 10 ml FLUSH ONETIME PRN PRN Reason: per radiology protocol Stop: 01/10/17 15:00 Last Admin: 01/10/17 14:03 Dose: 10 ml - Exam Quality Assessment: DVT prophylaxis General: alert, oriented, cooperative, no acute distress Lungs: Clear to auscultation, Normal respiratory effort Cardiovascular: Regular Rate, Regular Rhythm Abdomen: bowel sounds present, soft, no tenderness, no distension Back Exam: Normal Inspection, Full Range of Motion Extremities: no edema Skin: warm, dry, intact - Problem List Review Problem List Initiated/Reviewed/Updated: Yes - My Orders Last 24 Hours: My Active Orders 01/11/17 11:11 Lumbar Spine Comp w wo Cont [MR] Stat 01/11/17 11:13 Convert IV to Saline Lock [OM.PC] Routine 01/12/17 05:00 BASIC METABOLIC PANEL,BMP [CHEM] Timed CBC WITH AUTO DIFF [HEME] Timed - Plan Plan:: Assessment and plan - Fever with evidence for sepsis - sepsis has resolved with no further temperature elevation since admission. Showed possible tickborne illness, white blood cell count was normal at the time of admission but is now elevated. -continue ceftriaxone -MRI of the lumbar spine to absolutely rule out underlying infection -Peripheral smear and LDH to look for possible neoplastic disease such as leukemia/lymphoma -Anti-pyresis -Follow-up culture results -Echocardiogram in the morning to look for endocarditis -Peripheral smear Lower back pain status post recent laminectomy - given recent surgery will proceed with MRI as above -Pain control if indicated Hyperkalemia -resolved with potassium replacement -saline lock IV -Increase daily supplement to 20 mEq twice a day -Repeat labs in the morning Essential hypertension - blood pressure acceptable in the emergency room and usual medications will be continued. Maintenance issues - - DVT prophylaxis - mechanical - GI prophylaxis - PPI - Nutrition - regular diet - Negron catheter - not indicated CODE STATUS - full code Admission justification - This patient will be admitted for inpatient services and is medically appropriate meeting medical necessity for inpatient admission as outlined in my documentation. I reasonably expect the patient will require inpatient services that span a period time over 2 midnights. I reasonably expect this patient to be discharged or transferred within 96 hours [facility] Disposition - anticipate discharge to home after the hospital stay Primary care physician - Dr Mcnamara
[2017-01-11] MEDS ORDERED: Gadoteridol 279.3 MG/ML 15 ML SDV IV SCH (13:00)
--- NOTE | 2017-01-11 13:23 | MR ---
Lumbar Spine Comp w wo Cont INDICATION: Fever, lumbar laminectomy 3 weeks ago COMPARISON: CT 01/10/2017. FINDINGS: 5 lumbar type vertebral bodies. Stable compression fracture of L1 with approximately 70-80 % loss of vertebral body height with buckling of the posterior cortex into the spinal canal which pr oduces moderate spinal canal narrowing, unchanged. Moderate/severe right neural foraminal narrowing at L2-3 and L3-4, and moderate right neural foraminal narrowing at L4-5. Moderate/severe left neural foraminal narrowing at L4-5, and severe left neural foraminal narrowing at L5-S1. Right hemilaminec jailyn changes at L3-4-L5-S1 with expected postoperative enhancement in the laminectomy defects and ri ght ventral epidural space. 0.9 cm AP x 6.3 cm superior to inferior fluid collection just deep to th e laminectomy incision demonstrates mild peripheral enhancement and could represent a small postoper ative seroma versus small abscess; clinically correlate. Left renal cyst. Exam otherwise unremarkabl e. IMPRESSION: 1. 0.9 cm AP x 6.3 cm superior to inferior fluid collection just deep to the laminectomy incision de monstrates mild peripheral enhancement and could represent a small postoperative seroma versus small abscess; clinically correlate. 2. Stable compression fracture of L1. 3. Multilevel stenoses.
[2017-01-11] MEDS ORDERED: Vancomycin 1 GM SDV IV SCH (16:00)
[2017-01-11] MEDS: cefTRIAXone 1 GM in Sodium Chloride 0.9% 50 ML IV SCH (16:22)
[2017-01-11] MEDS: Acetaminophen 325 MG Tab PO PRN (17:12)
[2017-01-11] MEDS: Simvastatin 20 MG Tab PO SCH (20:13)
[2017-01-12] MEDS: Pantoprazole 40 MG Tab.CR PO SCH (08:17)
[2017-01-12] MEDS: amLODIPine 5 MG Tab PO SCH (08:19)
[2017-01-12] MEDS: OLANZapine 5 MG Tab PO SCH (08:19)
[2017-01-12] MEDS: PARoxetine 20 MG Tab PO SCH ×2 (08:19→21:14)
[2017-01-12] MEDS: Raloxifene 60 MG Tab PO SCH (08:20)
[2017-01-12] MEDS: Potassium Chloride 20 MEQ Tab.ER PO SCH ×2 (08:20→21:14)
[2017-01-12] MEDS: Hydrochlorothiazide 25 MG Tab PO SCH (08:20)
[2017-01-12] MEDS ORDERED: Potassium Chloride 20 MEQ Tab.ER PO ONE (09:00)
[2017-01-12] MEDS: cefTRIAXone 1 GM in Sodium Chloride 0.9% 50 ML IV SCH (15:09)
[2017-01-12] MEDS: Acetaminophen 325 MG Tab PO PRN (15:18)
--- NOTE | 2017-01-12 15:54 | PCM.PN ---
- General Info Date of Service: 01/12/17 Functional Status: Reports: pain controlled, tolerating diet, ambulating, urinating - Review of Systems General: Denies: Fever, Chills Pulmonary: Reports: no symptoms Cardiovascular: Reports: No Symptoms Gastrointestinal: Reports: No symptoms Musculoskeletal: Reports: back pain Systems Review Comment:: Ms. Muñiz has been stable over the past 24 hours, vital signs have been good and she has remained afebrile. White blood cell count remains modestly elevated but has improved from admission. Is experiencing some mild back pain but not much different than what she is noted in the recent past. MRI of the lumbar spine did show a fluid collection possible seroma versus infection. I reviewed this with her spine surgeon, given that there is no erythema or significant tenderness over the wound as well as no significant increase in back pain he feels that it's unlikely that this is the source of her current fever. - Patient Data Vitals - most recent: Last Vital Signs Temp 100.4 F 01/12/17 14:58 Pulse 81 01/12/17 10:54 Resp 16 01/12/17 14:58 BP 123/74 01/12/17 14:58 Pulse Ox 97 01/12/17 14:58 Weight - most recent: 127 lb 14.384 oz I&O - last 24 hours: Intake & Output 01/12/17 01/12/17 01/12/17 06:59 14:59 22:59 Intake Total 250 360 Output Total 1100 1550 Balance -850 -1190 Lab Results last 24 hrs: Laboratory Results - last 24 hr 01/12/17 01/12/17 01/12/17 Range/Units 05:15 05:15 05:15 WBC 11.4 H (4.5-11.0) K/uL RBC 3.23 L (3.30-5.50) M/uL Hgb 9.5 L (12.0-15.0) g/dL Hct 29.0 L (36.0-48.0) % MCV 90 (80-98) fL MCH 29 (27-31) pg MCHC 33 (32-36) % Plt Count 198 (150-400) K/uL Add Manual Diff Yes Neutrophils % (Manual) 68 H (36-66) % Band Neutrophils % 4 L (5-11) % Lymphocytes % (Manual) 14 L (24-44) % Monocytes % (Manual) 12 H (2-6) % Eosinophils % (Manual) 2 (2-4) % ESR 116 H (0-25) mm/hr Sodium 140 (140-148) mmol/L Potassium 3.2 L (3.6-5.2) mmol/L Chloride 106 (100-108) mmol/L Carbon Dioxide 25 (21-32) mmol/L Anion Gap 12.2 (5.0-14.0) mmol/L BUN 8 (7-18) mg/dL Creatinine 0.8 (0.6-1.0) mg/dL Est Cr Clr Drug Dosing 49.01 mL/min Estimated GFR (MDRD) > 60 (>60) Glucose 105 (74-106) mg/dL Calcium 8.5 (8.5-10.1) mg/dL C-Reactive Protein (0.0-0.3) mg/dL 01/12/17 Range/Units 05:15 WBC (4.5-11.0) K/uL RBC (3.30-5.50) M/uL Hgb (12.0-15.0) g/dL Hct (36.0-48.0) % MCV (80-98) fL MCH (27-31) pg MCHC (32-36) % Plt Count (150-400) K/uL Add Manual Diff Neutrophils % (Manual) (36-66) % Band Neutrophils % (5-11) % Lymphocytes % (Manual) (24-44) % Monocytes % (Manual) (2-6) % Eosinophils % (Manual) (2-4) % ESR (0-25) mm/hr Sodium (140-148) mmol/L Potassium (3.6-5.2) mmol/L Chloride (100-108) mmol/L Carbon Dioxide (21-32) mmol/L Anion Gap (5.0-14.0) mmol/L BUN (7-18) mg/dL Creatinine (0.6-1.0) mg/dL Est Cr Clr Drug Dosing mL/min Estimated GFR (MDRD) (>60) Glucose (74-106) mg/dL Calcium (8.5-10.1) mg/dL C-Reactive Protein 6.54 H (0.0-0.3) mg/dL Med Orders - Current: Current Medications Acetaminophen (Tylenol) 650 mg PO Q4H PRN PRN Reason: Pain (Mild 1-3)/fever Last Admin: 01/12/17 15:18 Dose: 650 mg Amlodipine Besylate (Norvasc) 5 mg PO DAILY [facility] Last Admin: 01/12/17 08:19 Dose: 5 mg Benazepril HCl (Lotensin) 10 mg PO DAILY [facility] Last Admin: 01/12/17 08:19 Dose: 10 mg Hydrochlorothiazide (Hydrochlorothiazide) 25 mg PO DAILY [facility] Last Admin: 01/12/17 08:20 Dose: 25 mg Clindamycin Phosphate 600 mg/ (Sodium Chloride) 54 mls @ 100 mls/hr IV Q6H [facility] Ibuprofen (Motrin) 400 mg PO Q6H PRN PRN Reason: Pain (mild 1-3) Olanzapine (Zyprexa) 5 mg PO DAILY [facility] Last Admin: 01/12/17 08:19 Dose: 5 mg Ondansetron HCl (Zofran Odt) 4 mg PO Q6H PRN PRN Reason: Nausea able to take PO Pantoprazole Sodium (Protonix) 40 mg PO ACBREAKFAST [facility] Last Admin: 01/12/17 08:17 Dose: 40 mg Paroxetine HCl (Paxil) 20 mg PO BID [facility] Last Admin: 01/12/17 08:19 Dose: 20 mg Polyethylene Glycol (Miralax) 17 gm PO DAILY PRN PRN Reason: Constipation Potassium Chloride (Klor-Con M20) 20 meq PO BID [facility] Last Admin: 01/12/17 08:20 Dose: 20 meq Raloxifene HCl (Evista) 60 mg PO DAILY [facility] Last Admin: 01/12/17 08:20 Dose: 60 mg Simvastatin (Zocor) 40 mg PO BEDTIME [facility] Last Admin: 01/11/17 20:13 Dose: 40 mg Discontinued Medications Gadoteridol (Prohance) 15 ml IV .A DIRECTED [facility] Stop: 01/11/17 13:01 Last Admin: 01/11/17 12:49 Dose: 15 ml Sodium Chloride (Normal Saline) 70 mls @ 3 mls/sec IV ASDIRECTED [facility] Stop: 01/10/17 15:00 Last Admin: 01/10/17 14:09 Dose: 3 mls/sec Potassium Chloride/Sodium Chloride (Normal Saline With 20 Meq Kcl) 1,000 mls @ 100 mls/hr IV ASDIRECTED [facility] Last Admin: 01/10/17 15:31 Dose: 100 mls/hr Ceftriaxone Sodium 1 gm/ (Sodium Chloride) 50 mls @ 100 mls/hr IV Q24H [facility] Last Admin: 01/12/17 15:09 Dose: 100 mls/hr Potassium Chloride/Dextrose/Sod Cl (D5 Ns With 20 Meq Kcl) 1,000 mls @ 125 mls/ hr IV ASDIRECTED [facility] Last Admin: 01/11/17 07:52 Dose: 125 mls/hr Sodium Chloride (Normal Saline) 1,000 mls @ 999 mls/hr IV ASDIRECTED [facility] Sodium Chloride (Normal Saline) 1,000 mls @ 999 mls/hr IV ONETIME ONE Stop: 01/10/17 19:00 Last Admin: 01/10/17 18:11 Dose: 999 mls/hr Sodium Chloride (Normal Saline) 1,000 mls @ 999 mls/hr IV ONETIME ONE Stop: 01/10/17 19:00 Last Admin: 01/10/17 19:14 Dose: 999 mls/hr Vancomycin HCl 1 gm/ Sodium (Chloride) 250 mls @ 167 mls/hr IV Q12H [facility] Last Admin: 01/12/17 05:17 Dose: 167 mls/hr Iopamidol (Isovue-300 (61%)) 90 ml IV . DIRECTED PRN PRN Reason: RADIOLOGY EXAM Stop: 01/10/17 15:00 Last Admin: 01/10/17 14:09 Dose: 90 ml Potassium Chloride (Klor-Con M20) 40 meq PO ONETIME ONE Stop: 01/10/17 12:54 Last Admin: 01/10/17 13:02 Dose: 40 meq Potassium Chloride (Klor-Con M20) 40 meq PO ONETIME ONE Stop: 01/12/17 09:01 Last Admin: 01/12/17 09:42 Dose: 40 meq Sodium Chloride (Saline Flush) 10 ml FLUSH ONETIME PRN PRN Reason: per radiology protocol Stop: 01/10/17 15:00 Last Admin: 01/10/17 14:03 Dose: 10 ml Vancomycin HCl (Vancomycin) 1 gm IV .PHARMACY TO DOSE [facility] Stop: 01/11/17 17:00 - Exam General: alert, oriented, cooperative, no acute distress Lungs: Clear to auscultation, Normal respiratory effort Cardiovascular: Regular Rate, Regular Rhythm Abdomen: bowel sounds present, soft, no tenderness, no distension Extremities: no edema Wound/Incisions: other (Wound appears to be healing well with no associated erythema, drainage, or tenderness.) - Problem List Review Problem List Initiated/Reviewed/Updated: Yes - My Orders Last 24 Hours: My Active Orders 01/12/17 16:00 Clindamycin Phosphate [Cleocin] 600 mg Sodium Chloride 0.9% [Normal Saline] 50 ml IV Q6H 01/13/17 05:00 BASIC METABOLIC PANEL,BMP [CHEM] Timed CBC WITH AUTO DIFF [HEME] Timed - Plan Plan:: Assessment and plan - Fever with evidence for sepsis - CRP and sedimentation rate remained elevated from this morning, white blood cell count is improved and she has remained afebrile with stable vital signs. MRI showed fluid collection in the back, incision is healing well with no drainage, erythema, or tenderness. -Discontinue IV vancomycin and Rocephin -Clindamycin 600 mg IV every 6 hours, if tolerated and she remained stable plan for discharge to home on oral clindamycin -Anti-pyresis -Culture results negative thus far -Echocardiogram results pending Lower back pain status post recent laminectomy - given recent surgery will proceed with MRI as above -Pain control if indicated Hyperkalemia -resolved with potassium replacement -saline lock IV -Increase daily supplement to 20 mEq twice a day -Repeat labs in the morning Essential hypertension - blood pressure acceptable in the emergency room and usual medications will be continued. Maintenance issues - - DVT prophylaxis - mechanical - GI prophylaxis - PPI - Nutrition - regular diet - Negron catheter - not indicated CODE STATUS - full code Admission justification - This patient will be admitted for inpatient services and is medically appropriate meeting medical necessity for inpatient admission as outlined in my documentation. I reasonably expect the patient will require inpatient services that span a period time over 2 midnights. I reasonably expect this patient to be discharged or transferred within 96 hours [facility] Disposition - anticipate discharge to home after the hospital stay Primary care physician - Dr Mcnamara
[2017-01-12] MEDS: oxyCODONE 5 MG Tab PO PRN (16:42)
[2017-01-12] MEDS: Simvastatin 20 MG Tab PO SCH (21:15)
[2017-01-13] MEDS: Pantoprazole 40 MG Tab.CR PO SCH (07:49)
[2017-01-13] MEDS: Raloxifene 60 MG Tab PO SCH (09:10)
[2017-01-13] MEDS: Hydrochlorothiazide 25 MG Tab PO SCH (09:11)
[2017-01-13] MEDS: amLODIPine 5 MG Tab PO SCH (09:11)
[2017-01-13] MEDS: Potassium Chloride 20 MEQ Tab.ER PO SCH (09:11)
[2017-01-13] MEDS: PARoxetine 20 MG Tab PO SCH (09:12)
[2017-01-13] MEDS: OLANZapine 5 MG Tab PO SCH (09:12)
[2017-01-13 10:15] VITALS: BP 114/66
[2017-01-13] MEDS: oxyCODONE 5 MG Tab PO PRN (11:09)
[2017-01-13] MEDS: Acetaminophen 325 MG Tab PO PRN (11:09)
--- NOTE | 2017-01-13 12:52 | PCM.DCSUM1 ---
Discharge Summary - Hospital Course Brief History: This patient is a 66-year-old woman who was admitted through the emergency department with fever secondary to underlying infection and early sepsis. - Discharge Data Discharge Date: 01/13/17 Discharge Disposition: Home, Self-Care 01 Condition: Fair - Discharge Diagnosis/Problem(s) (1) Sepsis SNOMED Code(s): 19621503 ICD Code: A41.9 - SEPSIS, UNSPECIFIED ORGANISM Status: Acute Current Visit: Yes Qualifiers: Sepsis type: sepsis due to unspecified organism Qualified Code(s): A41.9 - Sepsis, unspecified organism (2) Fever SNOMED Code(s): 206601020 ICD Code: R50.9 - FEVER, UNSPECIFIED Status: Acute Current Visit: Yes Qualifiers: Fever type: unspecified Qualified Code(s): R50.9 - Fever, unspecified - Patient Summary/Data Hospital Course: Ms. Muñiz developed acute fever and weakness on the day of admission. Approximately 3 weeks prior to this admission she had undergone a lumbar laminectomy performed in [place]. A few days prior to this admission was found to have a urinary tract infection and was placed on oral antibiotic therapy. On the day of admission became extremely weak and had significant temperature elevation. On evaluation she was felt to have early sepsis and was admitted to the hospital on IV antibiotic therapy with ceftriaxone as well as vigorous IV fluid replacement for management of sepsis. Evaluation the emergency department did show elevation in white blood cell count but no obvious source of infection. Chest x-ray was clear with no obvious infiltrates and urine was clear with no evidence of underlying infection. CT scan of her lumbar spine was obtained in the emergency department and showed no evidence of infection. Blood cultures were obtained at the time of admission and remained negative throughout her hospital stay. Urine culture was also obtained and grew out only mixed yuan. Because of her recent spine surgery MRI of the spine was done on the day after admission this did show a fluid collection under the incision approximately 1 cm x 6 cm in size. It was indeterminant possibly representing a seroma versus infection. I did review these findings with her spine surgeon, he felt it was unlikely that this represented infection in that the patient had not had an increase in back pain and that the incision looked good with no surrounding erythema or tenderness to palpation. During the hospital stay she was switched from IV Rocephin to IV clindamycin and will be discharged home on oral clindamycin 300 mg 4 times daily for 2 weeks. Activity will be as tolerated and she will follow-up with her primary care provider within one week. Follow-up appointment has been already scheduled with her spine surgeon for January 22. She will be on probiotic therapy until she has completed her course of clindamycin. - Patient Instructions Diet: Usual Diet as Tolerated Activity: As Tolerated Other/Special Instructions: Patient already has follow-up appointment scheduled with her spine surgeon on 22 January. Please schedule follow-up appointment with her primary care provider Dr. Mcnamara within 1 week. - Discharge Plan Prescriptions/Med Rec: Clindamycin HCl [Cleocin] 300 mg PO Q6H #56 cap L.acidoph,Paracasei, B.lactis [Probiotic] 2 each PO BID #56 capsule oxyCODONE 5 mg PO Q4H PRN #20 tablet PRN Reason: Pain Home Medications: Home Meds Calcium Carbonate/Vitamin D3 [Calcium 600 + Vit D 200] 1 tab PO BID 12/19/16 [ History] Hydrochlorothiazide 25 mg PO DAILY 12/19/16 [History] OLANZapine [Olanzapine] 5 mg PO DAILY 12/19/16 [History] Omeprazole 20 mg PO DAILY 12/19/16 [History] PARoxetine [Paxil] 20 mg PO BID 12/19/16 [History] Potassium Chloride [Klor-Con 10] 10 meq PO BID 12/19/16 [History] Raloxifene [Evista] 60 mg PO DAILY 12/19/16 [History] Simvastatin [Zocor] 40 mg PO BEDTIME 12/19/16 [History] amLODIPine/Benazepril [Lotrel 5-10 MG] 1 tab PO DAILY 12/19/16 [History] Clindamycin HCl [Cleocin] 300 mg PO Q6H #56 cap 01/13/17 [Rx] L.acidoph,Paracasei, B.lactis [Probiotic] 2 each PO BID #56 capsule 01/13/17 [Rx ] oxyCODONE 5 mg PO Q4H PRN #20 tablet 01/13/17 [Rx] Forms: ED Department Discharge Referrals: Yuni Mcnamara MD [Primary Care Provider] - - Patient Data Vitals - Most Recent: Last Vital Signs Temp 99.4 F 01/13/17 10:13 Pulse 90 01/13/17 10:13 Resp 16 01/13/17 10:13 BP 114/66 01/13/17 10:13 Pulse Ox 97 01/13/17 10:13 Weight - Most Recent: 127 lb 14.384 oz I&O - Last 24 hours: Intake & Output 01/12/17 01/13/17 01/13/17 22:59 06:59 14:59 Intake Total 470 145 Output Total 675 778 950 Balance -205 -180 -950 Lab Results - Last 24 hrs: Laboratory Results - last 24 hr 01/11/17 01/11/17 01/13/17 Range/Units 05:50 05:50 05:34 WBC 11.0 (4.5-11.0) K/uL RBC 3.27 L (3.30-5.50) M/uL Hgb 9.5 L (12.0-15.0) g/dL Hct 29.6 L (36.0-48.0) % MCV 91 (80-98) fL MCH 29 (27-31) pg MCHC 32 (32-36) % Plt Count 248 (150-400) K/uL Add Manual Diff Yes Total Counted 100 Neutrophils % (Manual) 63 (36-66) % Band Neutrophils % 7 (5-11) % Lymphocytes % (Manual) 17 L (24-44) % Monocytes % (Manual) 10 H (2-6) % Eosinophils % (Manual) 3 (2-4) % Segmented Neutrophils 48 (38-70) % Band Neutrophils 14 H (0-8) % Lymphocytes 19 L (21-49) % Monocytes 14 H (3-11) % Eosinophils 3 (0-7) % Diff Path Review See below WBC Morphology Normal Variant Lymphocytes 2 (0-6) % Platelet Morphology Decreased RBC Morphology Normal Sodium (140-148) mmol/L Potassium (3.6-5.2) mmol/L Chloride (100-108) mmol/L Carbon Dioxide (21-32) mmol/L Anion Gap (5.0-14.0) mmol/L BUN (7-18) mg/dL Creatinine (0.6-1.0) mg/dL Est Cr Clr Drug Dosing mL/min Estimated GFR (MDRD) (>60) Glucose (74-106) mg/dL Calcium (8.5-10.1) mg/dL Lyme Disease Screen Negative (NEG) Ref Lab Pathologist See below 01/13/17 Range/Units 05:34 WBC (4.5-11.0) K/uL RBC (3.30-5.50) M/uL Hgb (12.0-15.0) g/dL Hct (36.0-48.0) % MCV (80-98) fL MCH (27-31) pg MCHC (32-36) % Plt Count (150-400) K/uL Add Manual Diff Total Counted Neutrophils % (Manual) (36-66) % Band Neutrophils % (5-11) % Lymphocytes % (Manual) (24-44) % Monocytes % (Manual) (2-6) % Eosinophils % (Manual) (2-4) % Segmented Neutrophils (38-70) % Band Neutrophils (0-8) % Lymphocytes (21-49) % Monocytes (3-11) % Eosinophils (0-7) % Diff Path Review WBC Morphology Variant Lymphocytes (0-6) % Platelet Morphology RBC Morphology Sodium 142 (140-148) mmol/L Potassium 4.8 (3.6-5.2) mmol/L Chloride 108 (100-108) mmol/L Carbon Dioxide 26 (21-32) mmol/L Anion Gap 7.8 (5.0-14.0) mmol/L BUN 11 (7-18) mg/dL Creatinine 0.9 (0.6-1.0) mg/dL Est Cr Clr Drug Dosing 43.57 mL/min Estimated GFR (MDRD) > 60 (>60) Glucose 97 (74-106) mg/dL Calcium 8.6 (8.5-10.1) mg/dL Lyme Disease Screen (NEG) Ref Lab Pathologist Med Orders - Current: Current Medications Acetaminophen (Tylenol) 650 mg PO Q4H PRN PRN Reason: Pain (Mild 1-3)/fever Last Admin: 01/13/17 11:09 Dose: 650 mg Amlodipine Besylate (Norvasc) 5 mg PO DAILY [facility] Last Admin: 01/13/17 09:11 Dose: 5 mg Benazepril HCl (Lotensin) 10 mg PO DAILY [facility] Last Admin: 01/13/17 09:11 Dose: 10 mg Hydrochlorothiazide (Hydrochlorothiazide) 25 mg PO DAILY [facility] Last Admin: 01/13/17 09:11 Dose: 25 mg Clindamycin Phosphate 600 mg/ (Sodium Chloride) 54 mls @ 100 mls/hr IV Q6H [facility] Last Admin: 01/13/17 10:31 Dose: 100 mls/hr Ibuprofen (Motrin) 400 mg PO Q6H PRN PRN Reason: Pain (mild 1-3) Olanzapine (Zyprexa) 5 mg PO DAILY [facility] Last Admin: 01/13/17 09:12 Dose: 5 mg Ondansetron HCl (Zofran Odt) 4 mg PO Q6H PRN PRN Reason: Nausea able to take PO Oxycodone HCl (Oxycodone) 5 - 10 mg PO Q4H PRN PRN Reason: Pain Last Admin: 01/13/17 11:09 Dose: 5 mg Pantoprazole Sodium (Protonix) 40 mg PO ACBREAKFAST [facility] Last Admin: 01/13/17 07:49 Dose: 40 mg Paroxetine HCl (Paxil) 20 mg PO BID [facility] Last Admin: 01/13/17 09:12 Dose: 20 mg Polyethylene Glycol (Miralax) 17 gm PO DAILY PRN PRN Reason: Constipation Potassium Chloride (Klor-Con M20) 20 meq PO BID [facility] Last Admin: 01/13/17 09:11 Dose: 20 meq Raloxifene HCl (Evista) 60 mg PO DAILY [facility] Last Admin: 01/13/17 09:10 Dose: 60 mg Simvastatin (Zocor) 40 mg PO BEDTIME [facility] Last Admin: 01/12/17 21:15 Dose: 40 mg Discontinued Medications Gadoteridol (Prohance) 15 ml IV .A DIRECTED [facility] Stop: 01/11/17 13:01 Last Admin: 01/11/17 12:49 Dose: 15 ml Sodium Chloride (Normal Saline) 70 mls @ 3 mls/sec IV ASDIRECTED [facility] Stop: 01/10/17 15:00 Last Admin: 01/10/17 14:09 Dose: 3 mls/sec Potassium Chloride/Sodium Chloride (Normal Saline With 20 Meq Kcl) 1,000 mls @ 100 mls/hr IV ASDIRECTED [facility] Last Admin: 01/10/17 15:31 Dose: 100 mls/hr Ceftriaxone Sodium 1 gm/ (Sodium Chloride) 50 mls @ 100 mls/hr IV Q24H [facility] Last Admin: 01/12/17 15:09 Dose: 100 mls/hr Potassium Chloride/Dextrose/Sod Cl (D5 Ns With 20 Meq Kcl) 1,000 mls @ 125 mls/ hr IV ASDIRECTED [facility] Last Admin: 01/11/17 07:52 Dose: 125 mls/hr Sodium Chloride (Normal Saline) 1,000 mls @ 999 mls/hr IV ASDIRECTED [facility] Sodium Chloride (Normal Saline) 1,000 mls @ 999 mls/hr IV ONETIME ONE Stop: 01/10/17 19:00 Last Admin: 01/10/17 18:11 Dose: 999 mls/hr Sodium Chloride (Normal Saline) 1,000 mls @ 999 mls/hr IV ONETIME ONE Stop: 01/10/17 19:00 Last Admin: 01/10/17 19:14 Dose: 999 mls/hr Vancomycin HCl 1 gm/ Sodium (Chloride) 250 mls @ 167 mls/hr IV Q12H [facility] Last Admin: 01/12/17 05:17 Dose: 167 mls/hr Iopamidol (Isovue-300 (61%)) 90 ml IV . DIRECTED PRN PRN Reason: RADIOLOGY EXAM Stop: 01/10/17 15:00 Last Admin: 01/10/17 14:09 Dose: 90 ml Potassium Chloride (Klor-Con M20) 40 meq PO ONETIME ONE Stop: 01/10/17 12:54 Last Admin: 01/10/17 13:02 Dose: 40 meq Potassium Chloride (Klor-Con M20) 40 meq PO ONETIME ONE Stop: 01/12/17 09:01 Last Admin: 01/12/17 09:42 Dose: 40 meq Sodium Chloride (Saline Flush) 10 ml FLUSH ONETIME PRN PRN Reason: per radiology protocol Stop: 01/10/17 15:00 Last Admin: 01/10/17 14:03 Dose: 10 ml Vancomycin HCl (Vancomycin) 1 gm IV .PHARMACY TO DOSE [facility] Stop: 01/11/17 17:00 *Q Meaningful Use (DIS) - VTE *Q VTE Criteria *Q: - Stroke *Q Stroke Criteria *Q: - AMI *Q AMI Criteria *Q:
== END 2017-01-13 13:49 | disposition home or self-care (01) | DRG 872 ==
LOC: JP.ED 10:45 → JP.MS 15:12
PROVIDERS: ADMIT Internal Medicine; ATTEND Hospitalist
DX: A41.9 Sepsis, unspecified organism (principal); M96.843 Postprocedural seroma of a musculoskeletal structure following other procedure; E87.6 Hypokalemia; I10 Essential (primary) hypertension; D70.9 Neutropenia, unspecified; R53.1 Weakness; R50.9 Fever, unspecified; M79.1 Myalgia; Z98.890 Other specified postprocedural states; E78.00 Pure hypercholesterolemia, unspecified; R01.1 Cardiac murmur, unspecified; K21.9 Gastro-esophageal reflux disease without esophagitis; M19.90 Unspecified osteoarthritis, unspecified site; M81.0 Age-related osteoporosis without current pathological fracture; F41.9 Anxiety disorder, unspecified; F31.9 Bipolar disorder, unspecified; Z86.14 Personal history of Methicillin resistant Staphylococcus aureus infection; Z86.19 Personal history of other infectious and parasitic diseases; Z96.659 Presence of unspecified artificial knee joint; Y83.9 Surgical procedure, unspecified as the cause of abnormal reaction of the patient, or of later complication, without mention of misadventure at the time of the procedure
CPT/HCPCS: 36415; 71020 ×2; 72132; 80048; 80076; 81001; 83605; 85025; 85651; 86140; 87040 ×2; 87086; 99285; A9270; J7030; J7050; Q9967; 72158; 72158-26; 83615; 85027; 85060; 86618; 86666; 86666-59; 86753; 87077; 87186; 96365; 99283; A9576; J0696; J3370; J3480; J7040; S0077

== ENCOUNTER 2019-05-06 00:58 | Emergency (ER) | payer MEDICARE ==
[2019-05-06 01:30] VITALS: BP 142/82; PULSE 88
--- NOTE | 2019-05-06 01:55 | EDM.PDOC ---
ED HPI GENERAL MEDICAL PROBLEM - General Chief Complaint: Genitourinary Problem Stated Complaint: UTI Time Seen by Provider: 05/06/19 01:50 Source of Information: Reports: Patient, Old Records, RN History Limitations: Reports: No Limitations - History of Present Illness INITIAL COMMENTS - FREE TEXT/NARRATIVE: 69 yo female here with dysuria. No fever or vomiting. No flank pain. Was recently tx'd with TMP/SMZ for a UTI through the clinic. Onset: Today Onset Date: 05/06/19 Duration: Hour(s):, Getting Worse Location: Reports: Pelvis (urethral ) Quality: Reports: Burning Severity: Moderate Improves with: Reports: Medication (Pyridium) Worsens with: Reports: Other (time) Context: Reports: Other (Sexually active, recent UTI) Associated Symptoms: Denies: Fever/Chills, Nausea/Vomiting Treatments TITLE CLOSER: Reports: Other (see below) (None) bilateral lower back Pain Score (Numeric/FACES): 8 - Related Data Allergies Allergy/AdvReac Type Severity Reaction Status Date / Time No Known Allergies Allergy Verified 05/06/19 01:16 Home Meds: Home Meds Calcium Carbonate/Vitamin D3 [Calcium 600 + Vit D 200] 1 tab PO BID 12/19/16 [ History] Hydrochlorothiazide 25 mg PO DAILY 12/19/16 [History] OLANZapine [Olanzapine] 5 mg PO DAILY 12/19/16 [History] Omeprazole 20 mg PO DAILY 12/19/16 [History] PARoxetine [Paxil] 20 mg PO DAILY 12/19/16 [History] Potassium Chloride [Klor-Con 10] 10 meq PO BID 12/19/16 [History] Raloxifene [Evista] 60 mg PO DAILY 12/19/16 [History] Simvastatin [Zocor] 40 mg PO BEDTIME 12/19/16 [History] amLODIPine/Benazepril [Lotrel 5-10 MG] 1 tab PO DAILY 12/19/16 [History] Ferrous Sulfate [Ferosul] 325 mg PO DAILY 05/06/19 [History] Ibuprofen 400 mg PO ASDIRECTED PRN 05/06/19 [History] Past Medical History HEENT History: Reports: Impaired Vision Cardiovascular History: Reports: Heart Murmur, High Cholesterol, Hypertension Gastrointestinal History: Reports: GERD Genitourinary History: Reports: UTI, Recurrent CHIEF PSYCHOLOGY History: Reports: Musculoskeletal History: Reports: Arthritis, Fracture, Osteoporosis, Other (See Below) Other Musculoskeletal History: compression fractures to lower spine Psychiatric History: Reports: Anxiety, Bipolar, Depression Hematologic History: Reports: Anemia, Iron Deficiency Immunologic History: Reports: Other (See Below) Other Immunologic History: hepatitis C - Infectious Disease History Infectious Disease History: Reports: Chicken Pox - Past Surgical History HEENT Surgical History: Reports: Tonsillectomy GI Surgical History: Reports: Cholecystectomy Female Surgical History: Reports: Cystoscopy, Tubal Ligation Neurological Surgical History: Reports: Laminectomy Musculoskeletal Surgical History: Reports: Knee Replacement Social & Family History - Tobacco Use Smoking Status *Q: Never Smoker - Caffeine Use Caffeine Use: Reports: None Other Caffeine Use: occassionally - Recreational Drug Use Recreational Drug Use: No ED ROS GENERAL - Review of Systems Review Of Systems: See Below Constitutional: Reports: No Symptoms GI/Abdominal: Reports: No Symptoms : Reports: Dysuria, Frequency, Urgency. Denies: Hematuria Skin: Reports: No Symptoms ED EXAM, RENAL/ - Physical Exam Exam: See Below Exam Limited By: No Limitations General Appearance: Alert, WD/WN, No Apparent Distress Eye Exam: Bilateral Eye: Normal Inspection Ears: Normal External Exam, Normal Canal, Hearing Grossly Normal Nose: Normal Inspection Throat/Mouth: No Airway Compromise Head: Atraumatic, Normocephalic Neck: Normal Inspection Respiratory/Chest: No Respiratory Distress, No Accessory Muscle Use Back Exam: No: CVA Tenderness (R), CVA Tenderness (L) Extremities: Normal Inspection Neurological: Alert, Oriented, CN II-XII Intact, Normal Cognition, No Motor/ Sensory Deficits Psychiatric: Normal Affect, Normal Mood Skin Exam: Warm, Dry, Intact, Normal Color, No Rash Course - Vital Signs Last Recorded V/S: Last Vital Signs Temp 36.4 C 05/06/19 01:30 Pulse 88 05/06/19 01:30 Resp 17 05/06/19 01:30 BP 142/82 H 05/06/19 01:30 Pulse Ox 99 05/06/19 01:30 - Orders/Labs/Meds Orders: Active Orders 24 hr Category Date Time Status CULTURE URINE [RM] Stat Lab 05/06/19 01:48 Ordered Labs: Laboratory Tests 05/06/19 Range/Units 01:31 Urine Color Yellow (YELLOW) Urine Appearance Cloudy A (CLEAR) Urine pH 5.5 (5.0-8.0) Ur Specific [place] >= 1.030 (1.008-1.030) Urine Protein Negative (NEGATIVE) mg/dL Urine Glucose (UA) Negative (NEGATIVE) mg/dL Urine Ketones Negative (NEGATIVE) mg/dL Urine Occult Blood Negative (NEGATIVE) Urine Nitrite Negative (NEGATIVE) Urine Bilirubin Negative (NEGATIVE) Urine Urobilinogen 0.2 (0.2-1.0) EU/dL Ur Leukocyte Esterase Small H (NEGATIVE) Urine RBC 0-5 (0-5) Urine WBC 75-100 H (0-5) Ur Epithelial Cells Many Amorphous Sediment Not seen Urine Bacteria Few Urine Mucus Moderate Departure - Departure Time of Disposition: 01:55 Disposition: Home, Self-Care 01 Condition: Good Clinical Impression: Cystitis - Discharge Information *PRESCRIPTION DRUG MONITORING PROGRAM REVIEWED*: No *COPY OF PRESCRIPTION DRUG MONITORING REPORT IN PATIENT CELINA: No Instructions: Urinary Tract Infection, Adult, [id number] Referrals: PCP,None [Primary Care Provider] - Additional Instructions: Use cephalexin every 8 hrs. Drink ample fluids. Use Pyridium or AZO as needed for discomfort. Recheck in the clinic if not improving or worse. - My Orders Last 24 Hours: My Active Orders 05/06/19 01:48 CULTURE URINE [RM] Stat - Assessment/Plan Last 24 Hours: My Active Orders 05/06/19 01:48 CULTURE URINE [RM] Stat
== END 2019-05-06 02:01 | disposition home or self-care (01) ==
LOC: JP.ED 00:58
DX: N30.90 Cystitis, unspecified without hematuria (principal); I10 Essential (primary) hypertension; K21.9 Gastro-esophageal reflux disease without esophagitis; E78.5 Hyperlipidemia, unspecified; M81.0 Age-related osteoporosis without current pathological fracture; F32.9 Major depressive disorder, single episode, unspecified; Z79.899 Other long term (current) drug therapy
CPT/HCPCS: 81001; 87086; 87088; 87186; 99283

== ENCOUNTER 2019-07-15 15:13 | Emergency (ER) | payer MEDICARE ==
[2019-07-15 15:28] VITALS: BP 141/91; PULSE 87
--- NOTE | 2019-07-15 16:03 | EDM.PDOC ---
ED HPI GENERAL MEDICAL PROBLEM - General Chief Complaint: Genitourinary Problem Stated Complaint: UTI Time Seen by Provider: 07/15/19 15:45 Source of Information: Reports: Patient History Limitations: Reports: No Limitations - History of Present Illness INITIAL COMMENTS - FREE TEXT/NARRATIVE: 69-year-old female with a developed dysuria and increased urinary frequency today after having intercourse last night. She developed a urinary tract infection 2 months ago after intercourse as well. No fevers or chills, no back pain. Onset: Gradual Duration: Hour(s): (Symptoms developed over the last 12 hours) Associated Symptoms: Reports: No Other Symptoms - Related Data Allergies Allergy/AdvReac Type Severity Reaction Status Date / Time No Known Allergies Allergy Verified 05/06/19 01:16 Home Meds: Home Meds Calcium Carbonate/Vitamin D3 [Calcium 600 + Vit D 200] 1 tab PO BID 12/19/16 [ History] Hydrochlorothiazide 25 mg PO DAILY 12/19/16 [History] OLANZapine [Olanzapine] 5 mg PO DAILY 12/19/16 [History] Omeprazole 20 mg PO DAILY 12/19/16 [History] PARoxetine [Paxil] 20 mg PO DAILY 12/19/16 [History] Potassium Chloride [Klor-Con 10] 10 meq PO BID 12/19/16 [History] Raloxifene [Evista] 60 mg PO DAILY 12/19/16 [History] Simvastatin [Zocor] 40 mg PO BEDTIME 12/19/16 [History] amLODIPine/Benazepril [Lotrel 5-10 MG] 1 tab PO DAILY 12/19/16 [History] Ferrous Sulfate [Ferosul] 325 mg PO DAILY 05/06/19 [History] Ibuprofen 400 mg PO ASDIRECTED PRN 05/06/19 [History] Past Medical History HEENT History: Reports: Impaired Vision Cardiovascular History: Reports: Heart Murmur, High Cholesterol, Hypertension Gastrointestinal History: Reports: GERD Genitourinary History: Reports: UTI, Recurrent [employer] History: Reports: Musculoskeletal History: Reports: Arthritis, Fracture, Osteoporosis, Other (See Below) Other Musculoskeletal History: compression fractures to lower spine Psychiatric History: Reports: Anxiety, Bipolar, Depression Hematologic History: Reports: Anemia, Iron Deficiency Immunologic History: Reports: Other (See Below) Other Immunologic History: hepatitis C - Infectious Disease History Infectious Disease History: Reports: Chicken Pox - Past Surgical History HEENT Surgical History: Reports: Tonsillectomy GI Surgical History: Reports: Cholecystectomy Female Surgical History: Reports: Cystoscopy, Tubal Ligation Neurological Surgical History: Reports: Laminectomy Musculoskeletal Surgical History: Reports: Knee Replacement Social & Family History - Tobacco Use Smoking Status *Q: Never Smoker - Caffeine Use Caffeine Use: Reports: None Other Caffeine Use: occassionally ED ROS GENERAL - Review of Systems Review Of Systems: See Below Constitutional: Denies: Fever, Chills HEENT: Reports: No Symptoms Respiratory: Denies: Shortness of Breath Cardiovascular: Denies: Chest Pain GI/Abdominal: Denies: Abdominal Pain : Reports: Dysuria, Frequency, Urgency ED EXAM, RENAL/ - Physical Exam Exam: See Below Exam Limited By: No Limitations General Appearance: Alert, No Apparent Distress Respiratory/Chest: No Respiratory Distress, Lungs Clear Cardiovascular: Regular Rate, Rhythm GI/Abdominal: Non-Tender Back Exam: No: CVA Tenderness (R), CVA Tenderness (L) Course - Vital Signs Last Recorded V/S: Last Vital Signs Temp 96.1 F 07/15/19 15:28 Pulse 87 07/15/19 15:28 Resp 16 07/15/19 15:28 BP 141/91 H 07/15/19 15:28 Pulse Ox 98 07/15/19 15:28 - Orders/Labs/Meds Orders: Active Orders 24 hr Category Date Time Status CULTURE URINE [RM] Stat Lab 07/15/19 16:10 Received Labs: Laboratory Tests 07/15/19 Range/Units 15:28 Urine Color [place] A (YELLOW) Urine Appearance Clear (CLEAR) Urine pH 6.0 (5.0-8.0) Ur Specific [place] 1.010 (1.008-1.030) Urine Protein Negative (NEGATIVE) mg/dL Urine Glucose (UA) 100 H (NEGATIVE) mg/dL Urine Ketones Negative (NEGATIVE) mg/dL Urine Occult Blood Negative (NEGATIVE) Urine Nitrite Positive H (NEGATIVE) Urine Bilirubin Negative (NEGATIVE) Urine Urobilinogen 1.0 (0.2-1.0) EU/dL Ur Leukocyte Esterase Trace H (NEGATIVE) Urine RBC 0-5 (0-5) Urine WBC 5-10 H (0-5) Ur Epithelial Cells Few Amorphous Sediment Few Urine Bacteria Few Urine Mucus Not seen - Re-Assessments/Exams Free Text/Narrative Re-Assessment/Exam: 07/15/19 16:01 UA was nitrite positive with some WBCs and a few bacteria. A culture was initiated she will be placed on ciprofloxacin 500 mg twice daily for 3 days. Some extra doses were provided to take 1 dose after intercourse to prevent further cystitis. We will be in touch with her with culture results if she needs a change in her antibiotic. Departure - Departure Time of Disposition: 16:14 Disposition: Home, Self-Care 01 Clinical Impression: Cystitis - Discharge Information Instructions: Urinary Tract Infection, Adult Referrals: PCP,None [Primary Care Provider] - Forms: ED Department Discharge Care Plan Goals: Take antibiotic twice daily for 3 days. Take 1 dose of antibiotic after intercourse to prevent further infections. Recheck in 2 to 3 days if not improving satisfactorily, or return sooner if worsening such as fever, increased pain, or vomiting the medication. Sepsis Event Note - Evaluation Sepsis Screening Result: No Definite Risk - Focused Exam Vital Signs: Vital Signs Temp Pulse Resp BP Pulse Ox 07/15/19 15:28 96.1 F 87 16 141/91 H 98 07/15/19 15:26 96.1 F 87 16 141/91 H 98 Date Exam was Performed: 07/15/19 Time Exam was Performed: 16:50 - My Orders Last 24 Hours: My Active Orders 07/15/19 16:10 CULTURE URINE [RM] Stat - Assessment/Plan Last 24 Hours: My Active Orders 07/15/19 16:10 CULTURE URINE [RM] Stat
== END 2019-07-15 16:14 | disposition home or self-care (01) ==
LOC: JP.ED 15:13
DX: N30.90 Cystitis, unspecified without hematuria (principal); E78.00 Pure hypercholesterolemia, unspecified; I10 Essential (primary) hypertension; K21.9 Gastro-esophageal reflux disease without esophagitis; F41.9 Anxiety disorder, unspecified; F32.9 Major depressive disorder, single episode, unspecified; Z79.899 Other long term (current) drug therapy
CPT/HCPCS: 81001; 87086; 99283

== ENCOUNTER 2023-05-14 10:25 | Inpatient (IN) | payer MEDICARE ==
[2023-05-14] MEDS ORDERED: Ondansetron 4 MG/2 ML SDV IV PRN (10:55)
[2023-05-14] MEDS ORDERED: Sodium Chloride 0.9% 10 ML Syringe FLUSH PRN (10:55)
[2023-05-14] MEDS ORDERED: Polyethylene Glycol 3350 Powder 17 GM Packet PO PRN (10:55)
[2023-05-14] MEDS: Sodium Chloride 0.9% 1,000 ML IV SCH ×2 (11:37→17:08)
[2023-05-14] MEDS ORDERED: cefTRIAXone 2 GM in Sodium Chloride 0.9% 50 ML IV ONE (12:00)
[2023-05-14] MEDS ORDERED: Glucose Gel 15 GM in 37.5 GM Tube PO PRN (13:41)
[2023-05-14] MEDS ORDERED: 50% Dextrose in Water 50 ML Syringe IV PRN (13:41)
[2023-05-14] MEDS: Enoxaparin 40 MG/0.4 ML Syringe SUBCUT SCH (15:31)
[2023-05-14] MEDS: Acetaminophen 325 MG Tab PO PRN ×2 (15:39→20:29)
[2023-05-14] MEDS: Insulin Lispro 100 Unit/ML 3 ML KwikPen SUBCUT SCH ×2 (17:02→21:46)
[2023-05-14] MEDS ORDERED: Albuterol 6.7 GM Inhaler INH PRN (17:04)
[2023-05-14] MEDS: Lisinopril 10 MG Tab PO SCH (20:28)
[2023-05-14] MEDS: Potassium Chloride 10 MEQ Cap.ER PO SCH (20:29)
[2023-05-15 05:08] LABS: BASOPHILS PERCENT AUTO 0.1 % (0.1-1.3); HEMATOCRIT 31.9 % (34.3-46.0); HEMOGLOBIN 10.8 g/dL (11.2-15.5); IMMATURE GRAN ABSOLUTE AUTO 0.16 K/uL (0.00-0.23); IMMATURE GRAN PERCENT AUTO 0.9 % (0.0-0.7); LYMPHOCYTES ABSOLUTE AUTO 0.95 K/uL (0.8-3.3); LYMPHOCYTES PERCENT AUTO 5.2 % (11.4-47.7); MEAN CORPUSCULAR HEMOGLOBIN 30.1 pg (31.6-35.5); MEAN CORPUSCULAR HGB CONC 33.9 g/dL (31.6-35.5); MEAN CORPUSCULAR VOLUME 88.9 fL (81.4-99.0); MONOCYTES ABSOLUTE AUTO 2.89 K/uL (0.20-0.90); MONOCYTES PERCENT AUTO 15.7 % (3.3-12.6); NEUTROPHILS ABSOLUTE AUTO 14.41 K/uL (1.0-7.6); NEUTROPHILS PERCENT AUTO 78.1 % (40.0-78.1); PLATELET COUNT,PLT 164 K/uL (130-375); RED BLOOD CELL COUNT 3.59 M/uL (3.77-5.24); WHITE BLOOD CELL COUNT,WBC 18.4 K/uL (3.2-11.0)
[2023-05-15 05:14] LABS: BASOPHILS ABSOLUTE AUTO 0.02 K/uL (0.00-0.10)
[2023-05-15 05:32] LABS: CALCIUM 8.1 mg/dL (8.5-10.1); CREATININE 0.9 mg/dL (0.6-1.0); EST CRCL DRUG DOSING (CG) 39.39 mL/min
[2023-05-15 06:08] LABS: ANION GAP 10.8 mmol/L (5.0-14.0); POTASSIUM,K 2.8 mmol/L (3.6-5.2)
[2023-05-15] MEDS ORDERED: Potassium Chloride 20 MEQ Tab.ER PO ONE ×2 (06:11→12:00)
[2023-05-15] MEDS: Potassium Chloride 10 MEQ in Premix Bag 1 BAG IV SCH ×4 (06:28→12:58)
[2023-05-15] MEDS: Insulin Lispro 100 Unit/ML 3 ML KwikPen SUBCUT SCH ×4 (08:23→21:15)
[2023-05-15] MEDS: Pantoprazole 40 MG Tab.CR PO SCH (08:30)
[2023-05-15] MEDS: Rosuvastatin 5 MG Tab PO SCH (09:12)
[2023-05-15] MEDS: Aspirin 81 MG Tab.Chew PO SCH (09:12)
[2023-05-15] MEDS: Furosemide 20 MG Tab PO SCH (09:13)
[2023-05-15] MEDS: PARoxetine 20 MG Tab PO SCH (09:16)
[2023-05-15] MEDS: Potassium Chloride 10 MEQ Cap.ER PO SCH ×2 (09:17→20:19)
[2023-05-15] MEDS: OLANZapine 5 MG Tab PO SCH ×2 (09:18→18:38)
[2023-05-15] MEDS: Raloxifene 60 MG Tab PO SCH (09:19)
[2023-05-15] MEDS: amLODIPine 5 MG Tab PO SCH (09:25)
[2023-05-15] MEDS: Lisinopril 10 MG Tab PO SCH ×2 (09:26→20:19)
[2023-05-15] MEDS: Enoxaparin 40 MG/0.4 ML Syringe SUBCUT SCH (12:13)
[2023-05-15] MEDS: Polyethylene Glycol 3350 Powder 17 GM Packet PO SCH ×2 (13:08→20:19)
[2023-05-15] MEDS: cefTRIAXone 1 GM in Sodium Chloride 0.9% 50 ML IV SCH (14:53)
[2023-05-15] MEDS: Acetaminophen 325 MG Tab PO PRN ×2 (15:36→23:34)
[2023-05-16 05:17] LABS: HEMATOCRIT 32.6 % (34.3-46.0); HEMOGLOBIN 10.7 g/dL (11.2-15.5); MEAN CORPUSCULAR HEMOGLOBIN 29.5 pg (31.6-35.5); MEAN CORPUSCULAR HGB CONC 32.8 g/dL (31.6-35.5); MEAN CORPUSCULAR VOLUME 89.8 fL (81.4-99.0); RED BLOOD CELL COUNT 3.63 M/uL (3.77-5.24); WHITE BLOOD CELL COUNT,WBC 13.6 K/uL (3.2-11.0)
[2023-05-16 05:29] LABS: ANION GAP 12.1 mmol/L (5.0-14.0); CALCIUM 8.3 mg/dL (8.5-10.1); CREATININE 0.8 mg/dL (0.6-1.0); EST CRCL DRUG DOSING (CG) 44.31 mL/min; POTASSIUM,K 4.1 mmol/L (3.6-5.2)
[2023-05-16] MEDS: Pantoprazole 40 MG Tab.CR PO SCH (07:47)
[2023-05-16] MEDS: Insulin Lispro 100 Unit/ML 3 ML KwikPen SUBCUT SCH ×4 (07:53→21:34)
[2023-05-16] MEDS: Polyethylene Glycol 3350 Powder 17 GM Packet PO SCH (08:39)
[2023-05-16] MEDS: Rosuvastatin 5 MG Tab PO SCH (08:41)
[2023-05-16] MEDS: Aspirin 81 MG Tab.Chew PO SCH (08:41)
[2023-05-16] MEDS: Furosemide 20 MG Tab PO SCH (08:44)
[2023-05-16] MEDS: amLODIPine 5 MG Tab PO SCH (08:45)
[2023-05-16] MEDS: Raloxifene 60 MG Tab PO SCH (08:46)
[2023-05-16] MEDS: PARoxetine 20 MG Tab PO SCH (08:46)
[2023-05-16] MEDS: Potassium Chloride 10 MEQ Cap.ER PO SCH ×2 (08:47→21:35)
[2023-05-16] MEDS: Lisinopril 10 MG Tab PO SCH ×2 (08:48→21:35)
[2023-05-16] MEDS: OLANZapine 5 MG Tab PO SCH ×2 (08:48→16:10)
[2023-05-16] MEDS: Enoxaparin 40 MG/0.4 ML Syringe SUBCUT SCH (11:11)
[2023-05-16] MEDS: cefTRIAXone 1 GM in Sodium Chloride 0.9% 50 ML IV SCH (11:21)
[2023-05-16] MEDS: Acetaminophen 325 MG Tab PO PRN (15:10)
[2023-05-17] MEDS: Pantoprazole 40 MG Tab.CR PO SCH (07:22)
[2023-05-17] MEDS: Acetaminophen 325 MG Tab PO PRN (07:22)
[2023-05-17] MEDS: Insulin Lispro 100 Unit/ML 3 ML KwikPen SUBCUT SCH ×2 (07:38→11:49)
[2023-05-17] MEDS: Raloxifene 60 MG Tab PO SCH (09:11)
[2023-05-17] MEDS: amLODIPine 5 MG Tab PO SCH (09:11)
[2023-05-17] MEDS: Potassium Chloride 10 MEQ Cap.ER PO SCH (09:11)
[2023-05-17] MEDS: Rosuvastatin 5 MG Tab PO SCH (09:11)
[2023-05-17] MEDS: Furosemide 20 MG Tab PO SCH (09:11)
[2023-05-17] MEDS: Aspirin 81 MG Tab.Chew PO SCH (09:11)
[2023-05-17] MEDS: OLANZapine 5 MG Tab PO SCH (09:12)
[2023-05-17] MEDS: PARoxetine 20 MG Tab PO SCH (09:12)
[2023-05-17] MEDS: Lisinopril 10 MG Tab PO SCH (09:12)
[2023-05-17] MEDS ORDERED: Cephalexin 250 MG Cap PO SCH ×2 (10:00→21:00)
[2023-05-17] MEDS ORDERED: Cephalexin 250 MG Cap PO ONE (12:00)
[2023-05-17] MEDS: Enoxaparin 40 MG/0.4 ML Syringe SUBCUT SCH (12:23)
[2023-05-17 15:08] VITALS: BP 128/79; PULSE 88
== END 2023-05-17 15:32 | disposition home or self-care (01) | DRG 872 ==
LOC: JP.MS 10:25
PROVIDERS: ADMIT Hospitalist; ATTEND Internal Medicine
DX: A41.4 Sepsis due to anaerobes (principal); N30.00 Acute cystitis without hematuria; N17.9 Acute kidney failure, unspecified; F31.9 Bipolar disorder, unspecified; R63.0 Anorexia; E78.00 Pure hypercholesterolemia, unspecified; E11.9 Type 2 diabetes mellitus without complications; I10 Essential (primary) hypertension; K21.9 Gastro-esophageal reflux disease without esophagitis; M81.0 Age-related osteoporosis without current pathological fracture; M19.90 Unspecified osteoarthritis, unspecified site; Z96.659 Presence of unspecified artificial knee joint; F41.9 Anxiety disorder, unspecified; D50.9 Iron deficiency anemia, unspecified; Z86.19 Personal history of other infectious and parasitic diseases; Z90.89 Acquired absence of other organs; Z90.49 Acquired absence of other specified parts of digestive tract; Z98.51 Tubal ligation status; Z68.30 Body mass index [BMI] 30.0-30.9, adult; Z79.899 Other long term (current) drug therapy; Z79.01 Long term (current) use of anticoagulants; Z98.890 Other specified postprocedural states
CPT/HCPCS: 36415; 80048; 82947; 83605; 84132; 85025; 85027; 87040; 87077; 87086; 87186; 97110-GP; 97161-GP; 99222; 99232; 99238; A9270-GY; J0696; J1650; J1815; J3480; J3490; J7030

== ENCOUNTER 2023-06-22 14:05 | Emergency (ER) | payer MEDICARE ==
[2023-06-22 14:31] LABS: BASOPHILS PERCENT AUTO 0.2 % (0.1-1.3); EOSINOPHILS ABSOLUTE AUTO 0.06 K/uL (0.00-0.40); EOSINOPHILS PERCENT AUTO 0.5 % (0.0-5.4); HEMATOCRIT 38.3 % (34.3-46.0); HEMOGLOBIN 12.4 g/dL (11.2-15.5); IMMATURE GRAN ABSOLUTE AUTO 0.05 K/uL (0.00-0.23); IMMATURE GRAN PERCENT AUTO 0.4 % (0.0-0.7); LYMPHOCYTES ABSOLUTE AUTO 0.53 K/uL (0.8-3.3); LYMPHOCYTES PERCENT AUTO 4.4 % (11.4-47.7); MEAN CORPUSCULAR HEMOGLOBIN 29.2 pg (31.6-35.5); MEAN CORPUSCULAR HGB CONC 32.4 g/dL (31.6-35.5); MEAN CORPUSCULAR VOLUME 90.3 fL (81.4-99.0); MONOCYTES ABSOLUTE AUTO 1.86 K/uL (0.20-0.90); MONOCYTES PERCENT AUTO 15.5 % (3.3-12.6); NEUTROPHILS ABSOLUTE AUTO 9.45 K/uL (1.0-7.6); PLATELET COUNT,PLT 144 K/uL (130-375); RED BLOOD CELL COUNT 4.24 M/uL (3.77-5.24)
[2023-06-22 14:45] LABS: A/G RATIO 0.7 (1.2-2.2); ALANINE AMINOTRANSFERASE,ALT 41 U/L (12-78); ALKALINE PHOSPHATASE 165 U/L (46-116); ASPARTATE AMNIOTRANSFERASE,AST 53 U/L (15-37); BILIRUBIN TOTAL 2.2 mg/dL (0.2-1.0); BLOOD UREA NITROGEN,BUN 38 mg/dL (7-18); CALCIUM 10.3 mg/dL (8.5-10.1); CARBON DIOXIDE,CO2 21 mmol/L (21-32); CHLORIDE,CL 101 mmol/L (100-108); CREATININE 2.6 mg/dL (0.6-1.0); EST CRCL DRUG DOSING (CG) 13.63 mL/min; ESTIMATED GFR 19 mL/min (>60); GLUCOSE RANDOM 117 mg/dL (74-106); POTASSIUM,K 4.5 mmol/L (3.6-5.2); PROTEIN TOTAL,TP 7.1 g/dL (6.4-8.2); SODIUM,NA 133 mmol/L (140-148)
[2023-06-22 14:46] LABS: ANION GAP 15.5 mmol/L (5.0-14.0)
[2023-06-22 14:53] LABS: BASOPHILS ABSOLUTE AUTO 0.02 K/uL (0.00-0.10)
[2023-06-22] MEDS ORDERED: Lactated Ringers 1,000 ML IV ONE (15:17)
[2023-06-22 15:18] LABS: APPEARANCE,URINE CLOUDY (CLEAR); BILIRUBIN,URINE SMALL (NEGATIVE); COLOR,URINE YELLOW (YELLOW); GLUCOSE,URINE NEGATIVE (NEGATIVE); KETONES,URINE NEGATIVE (NEGATIVE); LEUKOCYTE ESTERASE,URINE SMALL (NEGATIVE); NITRITE,URINE NEGATIVE (NEGATIVE); OCCULT BLOOD,URINE MODERATE (NEGATIVE); PH,URINE 5.5 (5.0-8.0); PROTEIN,URINE TRACE mg/dL (NEGATIVE)
[2023-06-22 15:25] LABS: AMORPHOUS SEDIMENT,URINE FEW; BACTERIA,URINE MANY; EPITHELIAL CELLS,URINE FEW; MUCUS,URINE FEW; RBC,URINE 20-30 (0-5); WBC,URINE 30-40 (0-5)
[2023-06-22] MEDS ORDERED: Sodium Chloride 0.9% 1,000 ML IV ONE (16:28)
[2023-06-22] MEDS ORDERED: cefTRIAXone 1 GM in Sodium Chloride 0.9% 50 ML IV ONE (16:28)
[2023-06-22] MEDS ORDERED: Piperacillin/Tazobactam 4.5 GM in Sodium Chloride 0.9% 50 ML IV ONE (16:58)
[2023-06-22 17:11] LABS: INFLUENZA A NAA NEGATIVE (NEGATIVE); INFLUENZA B NAA NEGATIVE (NEGATIVE); RESPIRATORY SYNCYTIAL VIR NAA NEGATIVE (NEGATIVE)
[2023-06-22 17:18] VITALS: PULSE 85
[2023-06-22 17:19] VITALS: BP 117/61
[2023-06-22 17:26] LABS: CORONAVIRUS COVID-19 NAA POSITIVE (NEGATIVE)
[2023-06-22] MEDS ORDERED: Piperacillin/Tazobactam 4.5 GM in Sodium Chloride 0.9% 100 ML IV ONE (17:30)
== END 2023-06-22 18:20 | disposition home or self-care (01) ==
LOC: JP.ED 14:05
DX: N30.01 Acute cystitis with hematuria (principal); E78.00 Pure hypercholesterolemia, unspecified; I10 Essential (primary) hypertension; K21.9 Gastro-esophageal reflux disease without esophagitis; M19.90 Unspecified osteoarthritis, unspecified site; Z79.82 Long term (current) use of aspirin; Z79.899 Other long term (current) drug therapy
CPT/HCPCS: 0241U; 36415; 70450; 80053; 81001; 83605; 84145; 85025; 86140; 87040; 87086; 96365; 99285; J2543; J3490; J7030; J7120

== ENCOUNTER 2024-03-02 07:17 | Day surgery (SDC) | payer MEDICARE ==
[2024-03-02] MEDS ORDERED: Propofol 200 MG/20 ML SDV ONE (08:02)
[2024-03-02] MEDS ORDERED: fentaNYL 100 MCG/2 ML SDV ONE (08:02)
[2024-03-02] MEDS: Sodium Chloride 0.9% 1,000 ML IV SCH (08:13)
[2024-03-02 10:36] VITALS: BP 126/63; PULSE 74
== END 2024-03-02 10:43 | disposition home or self-care (01) ==
LOC: JP.SDS 07:17
PROVIDERS: ATTEND Surgery
DX: K57.31 Diverticulosis of large intestine without perforation or abscess with bleeding (principal); K64.8 Other hemorrhoids; I10 Essential (primary) hypertension; K21.9 Gastro-esophageal reflux disease without esophagitis; F32.A Depression, unspecified
CPT/HCPCS: J2704; J3010; J7030

== ENCOUNTER 2024-04-23 13:17 | Inpatient (IN) | payer MEDICARE, OTHER ==
[2024-04-23] MEDS: Sodium Chloride 0.9% 1,000 ML IV ONE ×2 (14:19→14:45)
[2024-04-23 14:37] LABS: BASOPHILS ABSOLUTE AUTO 0.03 K/uL (0.00-0.10); BASOPHILS PERCENT AUTO 0.3 % (0.1-1.3); EOSINOPHILS ABSOLUTE AUTO 0.14 K/uL (0.00-0.40); EOSINOPHILS PERCENT AUTO 1.2 % (0.0-5.4); HEMATOCRIT 33.1 % (34.3-46.0); IMMATURE GRAN ABSOLUTE AUTO 0.07 K/uL (0.00-0.23); IMMATURE GRAN PERCENT AUTO 0.6 % (0.0-0.7); LYMPHOCYTES ABSOLUTE AUTO 0.29 K/uL (0.8-3.3); LYMPHOCYTES PERCENT AUTO 2.4 % (11.4-47.7); MEAN CORPUSCULAR HEMOGLOBIN 30.4 pg (31.6-35.5); MEAN CORPUSCULAR HGB CONC 33.2 g/dL (31.6-35.5); MEAN CORPUSCULAR VOLUME 91.4 fL (81.4-99.0); MONOCYTES ABSOLUTE AUTO 0.44 K/uL (0.20-0.90); MONOCYTES PERCENT AUTO 3.7 % (3.3-12.6); NEUTROPHILS ABSOLUTE AUTO 11.03 K/uL (1.0-7.6); NEUTROPHILS PERCENT AUTO 91.8 % (40.0-78.1); PLATELET COUNT,PLT 168 K/uL (130-375); RED BLOOD CELL COUNT 3.62 M/uL (3.77-5.24)
[2024-04-23 14:39] LABS: A/G RATIO 0.9 (1.2-2.2); ALANINE AMINOTRANSFERASE,ALT 36 U/L (12-78); ALBUMIN 3.3 g/dL (3.4-5.0); ALKALINE PHOSPHATASE 60 U/L (46-116); ANION GAP 15.6 mmol/L (5.0-14.0); ASPARTATE AMNIOTRANSFERASE,AST 40 U/L (15-37); BILIRUBIN TOTAL 0.4 mg/dL (0.2-1.0); BLOOD UREA NITROGEN,BUN 33 mg/dL (7-18); CALCIUM 9.4 mg/dL (8.5-10.1); CARBON DIOXIDE,CO2 22 mmol/L (21-32); CHLORIDE,CL 100 mmol/L (100-108); EST CRCL DRUG DOSING (CG) 11.64 mL/min; ESTIMATED GFR 16 mL/min (>60); GLUCOSE RANDOM 161 mg/dL (74-106); POTASSIUM,K 4.6 mmol/L (3.6-5.2); PROTEIN TOTAL,TP 6.9 g/dL (6.4-8.2); SODIUM,NA 133 mmol/L (140-148)
[2024-04-23 15:01] LABS: C-REACTIVE PROTEIN 2.56 mg/dL (<0.50)
[2024-04-23 15:10] LABS: SEDIMENTATION RATE MANUAL 24 mm/hr (0-25)
[2024-04-23 15:20] LABS: APPEARANCE,URINE CLEAR (CLEAR); BILIRUBIN,URINE NEGATIVE (NEGATIVE); COLOR,URINE YELLOW (YELLOW); GLUCOSE,URINE NEGATIVE (NEGATIVE); KETONES,URINE NEGATIVE (NEGATIVE); LEUKOCYTE ESTERASE,URINE NEGATIVE (NEGATIVE); NITRITE,URINE POSITIVE (NEGATIVE); OCCULT BLOOD,URINE TRACE-INTACT (NEGATIVE); PH,URINE 5.5 (5.0-8.0); PROTEIN,URINE 30 mg/dL (NEGATIVE); UROBILINOGEN,URINE 0.2 EU/dL (0.2-1.0)
[2024-04-23 15:30] LABS: AMORPHOUS SEDIMENT,URINE MODERATE; BACTERIA,URINE FEW; EPITHELIAL CELLS,URINE FEW; MUCUS,URINE NOT SEEN; RBC,URINE 0-5 (0-5)
[2024-04-23 15:31] LABS: WBC,URINE 0-5 (0-5)
[2024-04-23] MEDS: Sodium Chloride 0.9% 1,000 ML IV SCH ×2 (16:02→19:48)
[2024-04-23] MEDS ORDERED: Ondansetron 4 MG Tab.DIS PO PRN (19:36)
[2024-04-23] MEDS ORDERED: Magnesium Hydroxide 400 MG/5 ML Susp 30 ML Cup PO PRN (19:36)
[2024-04-23] MEDS ORDERED: oxyCODONE 5 MG Tab PO PRN (19:36)
[2024-04-23] MEDS ORDERED: Sennosides/Docusate Sodium 50-8.6 MG Tab PO PRN (19:36)
[2024-04-23] MEDS ORDERED: Ondansetron 4 MG/2 ML SDV IV PRN (19:36)
[2024-04-23] MEDS ORDERED: HYDROmorphone 0.5 MG/0.5 ML Syringe IVPUSH PRN (19:38)
[2024-04-23] MEDS: Melatonin 3 MG Tab PO SCH (21:32)
[2024-04-23] MEDS: OLANZapine 5 MG Tab PO SCH (21:32)
[2024-04-24] MEDS: Albuterol 0.083% 2.5 MG/3 ML Neb Soln NEB PRN (00:22)
[2024-04-24 06:34] LABS: HEMATOCRIT 29.8 % (34.3-46.0); HEMOGLOBIN 10.1 g/dL (11.2-15.5); MEAN CORPUSCULAR HEMOGLOBIN 30.5 pg (31.6-35.5); MEAN CORPUSCULAR HGB CONC 33.9 g/dL (31.6-35.5); RED BLOOD CELL COUNT 3.31 M/uL (3.77-5.24); WHITE BLOOD CELL COUNT,WBC 6.2 K/uL (3.2-11.0)
[2024-04-24 06:42] LABS: CALCIUM 8.1 mg/dL (8.5-10.1); CREATININE 1.8 mg/dL (0.6-1.0); EST CRCL DRUG DOSING (CG) 19.4 mL/min; POTASSIUM,K 4.1 mmol/L (3.6-5.2)
[2024-04-24 06:44] LABS: ANION GAP 15.1 mmol/L (5.0-14.0)
[2024-04-24] MEDS: Tamsulosin 0.4 MG Cap.ER PO SCH (08:24)
[2024-04-24] MEDS: Pantoprazole 40 MG Tab.CR PO SCH (08:24)
[2024-04-24] MEDS: Aspirin 81 MG Tab.Chew PO SCH (08:24)
[2024-04-24] MEDS: Raloxifene 60 MG Tab PO SCH (08:24)
[2024-04-24] MEDS: PARoxetine 20 MG Tab PO SCH (08:24)
[2024-04-24] MEDS: Rosuvastatin 5 MG Tab PO SCH (08:25)
[2024-04-24] MEDS: OLANZapine 5 MG Tab PO SCH (08:25)
[2024-04-24 14:16] LABS: A/G RATIO 0.8 (1.2-2.2); BILIRUBIN DIRECT 0.55 mg/dL (0.0-0.2); BILIRUBIN INDIRECT 0.25; BILIRUBIN TOTAL 0.8 mg/dL (0.2-1.0); PROTEIN TOTAL,TP 6.7 g/dL (6.4-8.2)
[2024-04-24 14:19] LABS: C-REACTIVE PROTEIN 4.06 mg/dL (<0.50); TROPONIN I HIGH SENSITIVITY 6.6 pg/mL (<=60.3)
[2024-04-25 06:09] LABS: CALCIUM 8.6 mg/dL (8.5-10.1); CREATININE 1.2 mg/dL (0.6-1.0); EST CRCL DRUG DOSING (CG) 29.1 mL/min; POTASSIUM,K 4.2 mmol/L (3.6-5.2)
[2024-04-25 06:19] LABS: ANION GAP 13.2 mmol/L (5.0-14.0)
[2024-04-25] MEDS: Acetaminophen 325 MG Tab PO PRN (09:44)
[2024-04-25 11:16] VITALS: BP 153/76; PULSE 92
== END 2024-04-25 11:40 | disposition home or self-care (01) | DRG 683 ==
LOC: JP.ED 13:17 → JP.MS 17:01
PROVIDERS: ADMIT Internal Medicine; ATTEND Hospitalist
DX: N17.9 Acute kidney failure, unspecified (principal); E87.20 Acidosis, unspecified; N10 Acute pyelonephritis; D72.829 Elevated white blood cell count, unspecified; E78.00 Pure hypercholesterolemia, unspecified; F31.70 Bipolar disorder, currently in remission, most recent episode unspecified; I10 Essential (primary) hypertension; K21.9 Gastro-esophageal reflux disease without esophagitis; M19.90 Unspecified osteoarthritis, unspecified site; M81.0 Age-related osteoporosis without current pathological fracture; F41.9 Anxiety disorder, unspecified; E86.1 Hypovolemia; I95.89 Other hypotension; M25.511 Pain in right shoulder; D50.9 Iron deficiency anemia, unspecified; Z79.82 Long term (current) use of aspirin; Z98.51 Tubal ligation status; Z90.49 Acquired absence of other specified parts of digestive tract; Z96.659 Presence of unspecified artificial knee joint; Z90.89 Acquired absence of other organs; Z98.890 Other specified postprocedural states; Z79.899 Other long term (current) drug therapy
CPT/HCPCS: 36415; 71045 ×2; 74176; 80053; 81001; 83605; 83690; 84145; 84484; 85025; 85651; 86140; 87040 ×2; 93005; 96360; 96361; 99285; J7030 ×3; 71046; 71046-26; 80048; 80076; 85027; 87086; 93010; 94640; 97161-GP; 99222; 99232; 99238; A9270-GY

== ENCOUNTER 2025-01-05 16:47 | Emergency (ER) | payer MEDICARE ==
[2025-01-05 18:34] VITALS: BP 147/71; PULSE 77
== END 2025-01-05 19:14 | disposition home or self-care (01) ==
LOC: JP.ED 16:47
DX: S00.83XA Contusion of other part of head, initial encounter (principal); I10 Essential (primary) hypertension; E78.00 Pure hypercholesterolemia, unspecified; K21.9 Gastro-esophageal reflux disease without esophagitis; Z90.49 Acquired absence of other specified parts of digestive tract; Z88.8 Allergy status to other drugs, medicaments and biological substances; Z79.51 Long term (current) use of inhaled steroids; Z79.899 Other long term (current) drug therapy; W01.0XXA Fall on same level from slipping, tripping and stumbling without subsequent striking against object, initial encounter
CPT/HCPCS: 70450; 70486; 72125; 76377; 99283

== ENCOUNTER 2025-05-19 20:30 | Emergency (ER) | payer MEDICARE ==
[2025-05-19 21:01] VITALS: BP 191/88; PULSE 104
== END 2025-05-19 22:00 | disposition home or self-care (01) ==
LOC: JP.ED 20:30
DX: R05.3 Chronic cough (principal); I10 Essential (primary) hypertension; E78.00 Pure hypercholesterolemia, unspecified; K21.9 Gastro-esophageal reflux disease without esophagitis; Z79.899 Other long term (current) drug therapy; Z88.2 Allergy status to sulfonamides
CPT/HCPCS: 99283